=== PATIENT | female | born 1990 | race Caucasian/White ===

== ENCOUNTER 2023-05-15 10:32 | Outpatient (OUT) | payer OTHER, SELFPAY ==
--- NOTE | 2023-05-15 10:47 | US_ITS ---
[address] [address] Patient Name: CHASITY BAPTISTE MRN: [id number] date: 1990 Sex: F Assigned Patient Location: US Current Patient Location: US Accession/Order Number: [id number] Exam Date: 05/15/2023 10:46 Report Date: 05/15/2023 17:31 At the request of: KIRILL OATES Procedure: US OB transvaginal EXAM: US OB anatomy, US OB transvaginal HISTORY: ANATOMY COMPARISON: 02/21/2023. TECHNIQUE: Transabdominal and transvaginal FINDINGS: Dorsey intrauterine gestation presentation: Breech Amniotic fluid: Subjectively normal Placenta: Anterior fundal, grade 0. Cervix: 4.0 cm, closed Heart rate: 152 bpm Normal anatomy: Lateral ventricles, cerebellum, posterior fossa, nose/lips, orbits, four-chamber heart, diaphragm, stomach, kidneys, abdominal cord insertion, bladder, umbilical cord, three-vessel cord, spine, extremities Suboptimal visualization: RVOT, LVOT BIOMETRY: BPD: 4.4 cm , 19 weeks 2 days, 4% HC: 17.7 cm , 20 weeks 1 day, 15% AC: 15.6 cm , 20 weeks 5 days, 40% FL: 3.4 cm , 20 weeks 5 days, 35% EFW:365.9 grams ; 32%, 13 ounces FL/AC: 21.8 FL/BPD: 77.5 HC/AC: 1.1 GESTATIONAL AGE: Age by EDC: 20 weeks 6 days ALYSON by EDC: 09/26/2023 Age by current US: 20 weeks 4 days ALYSON by current US: 09/30/2023 IMPRESSION: Suboptimal visualization of the ventricular outflow tracts, otherwise normal anatomy scan Electronically authenticated by: CHARLES ZEPEDA Date: 05/15/2023 17:31
--- NOTE | 2023-05-15 10:47 | US_ITS ---
[address] [address] Patient Name: CHASITY BAPTISTE MRN: [id number] date: 1990 Sex: F Assigned Patient Location: US Current Patient Location: US Accession/Order Number: [id number] Exam Date: 05/15/2023 10:46 Report Date: 05/15/2023 17:31 At the request of: KIRILL OATES Procedure: US OB anatomy EXAM: US OB anatomy, US OB transvaginal HISTORY: ANATOMY COMPARISON: 02/21/2023. TECHNIQUE: Transabdominal and transvaginal FINDINGS: Dorsey intrauterine gestation presentation: Breech Amniotic fluid: Subjectively normal Placenta: Anterior fundal, grade 0. Cervix: 4.0 cm, closed Heart rate: 152 bpm Normal anatomy: Lateral ventricles, cerebellum, posterior fossa, nose/lips, orbits, four-chamber heart, diaphragm, stomach, kidneys, abdominal cord insertion, bladder, umbilical cord, three-vessel cord, spine, extremities Suboptimal visualization: RVOT, LVOT BIOMETRY: BPD: 4.4 cm , 19 weeks 2 days, 4% HC: 17.7 cm , 20 weeks 1 day, 15% AC: 15.6 cm , 20 weeks 5 days, 40% FL: 3.4 cm , 20 weeks 5 days, 35% EFW:365.9 grams ; 32%, 13 ounces FL/AC: 21.8 FL/BPD: 77.5 HC/AC: 1.1 GESTATIONAL AGE: Age by EDC: 20 weeks 6 days ALYSON by EDC: 09/26/2023 Age by current US: 20 weeks 4 days ALYSON by current US: 09/30/2023 IMPRESSION: Suboptimal visualization of the ventricular outflow tracts, otherwise normal anatomy scan Electronically authenticated by: CHARLES ZEPEDA Date: 05/15/2023 17:31
== END 2023-05-15 10:33 ==
PROVIDERS: Visit Provider Obstetrics & Gynecology
DX: Z34.92 Encounter for supervision of normal pregnancy, unspecified, second trimester (principal)
CPT/HCPCS: 76805; 76817

== ENCOUNTER 2023-06-17 10:05 | Outpatient (OUT) | payer OTHER, SELFPAY ==
--- NOTE | 2023-06-17 10:10 | US_ITS ---
[address] [address] Patient Name: CHASITY BAPTISTE MRN: [id number] date: 1990 Sex: F Assigned Patient Location: US Current Patient Location: Accession/Order Number: [id number] Exam Date: 06/17/2023 10:11 Report Date: 06/17/2023 18:24 At the request of: KIRILL OATES Procedure: US OB incomplete anatomy EXAM: US OB incomplete anatomy HISTORY: INCOMPLETE ANATOMY FOLLOW UP COMPARISON: None. TECHNIQUE: Transabdominal images FINDINGS: position: Breech presentation, longitudinal lie Heart rate: 150 bpm Normal observed anatomy: RVOT, LVOT US/US OB incomplete anatomy IMPRESSION: Normal ventricular outflow tracts Electronically authenticated by: CHARLES ZEPEDA Date: 06/17/2023 18:24
== END 2023-06-17 10:06 | disposition home or self-care (01) ==
LOC: US 10:05
PROVIDERS: Visit Provider Obstetrics & Gynecology
DX: Z36.2 Encounter for other antenatal screening follow-up (principal)
CPT/HCPCS: 76815

== ENCOUNTER 2023-07-23 11:33 | Outpatient (OUT) | payer OTHER, SELFPAY ==
[2023-07-23 12:09] LABS: Basophils Percent Auto 0.4 % (0.2-2.0); Eosinophils Absolute Auto 0.1 10^3/uL (0.0-0.7); Eosinophils Percent Auto 0.8 % (0.9-7.0); Hematocrit 31.3 % (36.0-48.0); Immature Granulocytes Abs Auto 0.05 10^3/uL (0.00-0.03); Immature Granulocytes Pct Auto 0.6 % (0.0-0.5); Lymphocytes Absolute Auto 1.7 10^3/uL (1.2-3.8); Lymphocytes Percent Auto 20.7 % (20.5-60.0); Mean Corpuscular HGB Conc 31.9 g/dL (29.9-35.2); Mean Corpuscular Volume 84.4 fL (81.0-99.0); Mean Platelet Volume 11.1 fL (9.5-13.5); Monocytes Absolute Auto 0.7 10^3/uL (0.3-0.8); Monocytes Percent Auto 8.8 % (1.7-12.0); Neutrophils Absolute Auto 5.7 10^3/uL (1.4-6.5); Neutrophils Percent Auto 68.7 % (43.0-75.0); Platelet Count 284 10^3/uL (150-450); Red Blood Count 3.71 10^6/uL (4.20-5.40); Red Cell Distribution Width 13.8 % (11.0-15.0); White Blood Count 8.3 10^3/uL (4.0-11.0)
[2023-07-23 12:52] LABS: Estimated Average Glucose 114 mg/dL; Glycohemoglobin A1C 5.6 % (4.5-6.2)
== END 2023-07-23 11:34 | disposition home or self-care (01) ==
LOC: LAB 11:34
PROVIDERS: Visit Provider Obstetrics & Gynecology
DX: Z34.93 Encounter for supervision of normal pregnancy, unspecified, third trimester (principal)
CPT/HCPCS: 36415; 83036; 85025

== ENCOUNTER 2023-09-04 18:58 | Outpatient (REF) | payer OTHER, SELFPAY | END 2023-09-04 18:59 | disposition home or self-care (01) | LOC: LAB 18:58 | PROVIDERS: Visit Provider Physician Assistant | DX: Z34.93 Encounter for supervision of normal pregnancy, unspecified, third trimester (principal) | CPT/HCPCS: 87081 ==

== ENCOUNTER 2023-09-26 05:22 | Inpatient (IN) | payer OTHER, SELFPAY ==
[2023-09-26] VITALS (36 sets, daily range): BP systolic 62–123; BP diastolic 46–88; PULSE 71–97; RESP 13–28; TEMP 36.1–36.9; O2SAT 96–99
[2023-09-26] MEDS: CEFAZOLIN SODIUM/DEXTROSE,ISO 2 GM/50 ML PIGGYBACK IV ×2 (06:30→13:56)
[2023-09-26] MEDS: 0.9 % SODIUM CHLORIDE 1,000 ML 1000 ML IV ×2 (06:31→07:11)
[2023-09-26 06:33] LABS: Hemoglobin 10.5 g/dL (12.0-16.0); Mean Corpuscular HGB Conc 30.9 g/dL (29.9-35.2); Mean Corpuscular Hemoglobin 25.7 pg (26.7-34.0); Mean Corpuscular Volume 83.3 fL (81.0-99.0); Mean Platelet Volume 12.5 fL (9.5-13.5); Platelet Count 211 10^3/uL (150-450); Red Blood Count 4.08 10^6/uL (4.20-5.40); White Blood Count 6.2 10^3/uL (4.0-11.0)
[2023-09-26 06:36] LABS: Bilirubin Urine NEGATIVE (NEGATIVE); Blood Urine NEGATIVE (NEGATIVE); Clarity Urine CLEAR (CLEAR); Color Urine LT. YELLOW (YELLOW); Glucose Urine UA NEGATIVE (NEGATIVE); Ketones Urine NEGATIVE (NEGATIVE); Leukocyte Esterase Urine TRACE (NEGATIVE); Nitrite Urine NEGATIVE (NEGATIVE); Protein Urine NEGATIVE (NEG/TRACE); Specific Gravity Urine 1.015 (1.005-1.025); Urobilinogen Urine 0.2 EU/dL (0.2-1.0)
[2023-09-26 06:59] LABS: Amphetamine Screen Urine NEGATIVE (NEGATIVE); Barbiturates Screen Urine NEGATIVE (NEGATIVE); Benzodiazepines Screen Urine NEGATIVE (NEGATIVE); Buprenorphine Screen Urine NEGATIVE (NEGATIVE); Cannabinoid Screen Urine NEGATIVE (NEGATIVE); Cocaine Screen Urine NEGATIVE (NEGATIVE); Methadone Screen Urine NEGATIVE (NEGATIVE); Methamphetamines Screen Urine NEGATIVE (NEGATIVE); Opiate Screen Urine NEGATIVE (NEGATIVE); Oxycodone Screen Urine NEGATIVE (NEGATIVE); Phencyclidine Screen Urine NEGATIVE (NEGATIVE); Tricyclic Antidepressant Urine NEGATIVE (NEGATIVE)
[2023-09-26] MEDS: CITRIC ACID/SODIUM CITRATE 30 ML SOLUTION ORACIT SHOHL'S SOLN PO (07:15)
[2023-09-26] MEDS: FAMOTIDINE/PF 20 MG/2 ML VIAL IV (07:15)
[2023-09-26 07:21] LABS: Bacteria Urine MODERATE #/HPF (NONE SEEN); Cast Seen? NONE SEEN #/LPF (NONE SEEN); Crystals Seen? None Seen #/HPF (None Seen); Mucus Urine NONE SEEN (NONE SEEN); Squamous Epithelial Cell Urine FEW #/LPF (NONE/RARE); Urine Culture Indicated YES
--- NOTE | 2023-09-26 07:27 | W.PC.ACHO ---
Registration Status: ADM IN Primary Language: Latvian Preferred Language: Latvian Active Medications Generic Name Dose Route Start Last Admin Trade Name Freq PRN Reason Stop Dose Admin Sodium Chloride 1,000 mls @ 1,000 mls/hr 09/26/23 05:30 09/26/23 07:11 Sodium Chloride 0.9% 1,000 Ml IV 09/26/23 07:29 1,000 mls/hr .Q1H DEBORAH Administration Sodium Chloride 1,000 mls @ 125 mls/hr 09/26/23 05:30 Sodium Chloride 0.9% 1,000 Ml IV .Q8H DEBORAH Diet Category Date Time Status NPO Diet Diet 09/26/23 05:27 Active Consults Category Date Time Status Consult to Anesthesiology Routine Cons 09/26/23 Ordered IV Insertion/Site Date of IV Line Insertion [ 09/26/23 Short PIV (<1.75 in) 20g left Forearm] IV Insertion Time [Short PIV ( 06:03 <1.75 in) 20g left Forearm] Neurology Patient orientation (short person,place,time,situation list) Respiratory Oxygen Delivery Method Room Air
[2023-09-26 07:37] LABS: Anisocytosis 1+; Lymphocytes Absolute Manual 1.17 10^3/uL (1.20-3.80); Monocytes Absolute Manual 0.43 10^3/uL (0.30-0.80); Segmented Neut Absolute Manual 4.58 10^3/uL (1.4-6.5)
[2023-09-26] MEDS: LACTATED RINGER'S SOLUTION 1,000 ML 50 ML IV (08:02)
--- NOTE | 2023-09-26 08:28 | P.ON_ITS ---
Brief Operative Note Date of procedure: 09/26/23 Pre-op diagnosis: iup at 39 2/7wks, previous c/s Post-op diagnosis: same as pre-op Procedure: NAME OF PROCEDURE: [ section ] PROCEDURE: Patient was taken back to the Operating Room where she was given a spinal anesthesia with Duramorph without difficulty. She was prepped and draped in the normal sterile fashion. A Pfannenstiel skin incision was then made 2 cm above the symphysis pubis and carried down to underlying rectus fascia using a Bovie. The fascia was incised in the midline and extended laterally using Ma scissors. Two Krunal clamps were placed on the superior aspect of the fascia and dissected off the underlying rectus muscles. The same was performed on the inferior aspect as well. The muscles were then in the midline. Peritoneum was identified and entered bluntly. The peritoneum was then extended superiorly and inferiorly with good visualization of the bladder. The bladder blade was inserted. A low transverse incision was made on the patient's uterus and extended laterally digitally. The was then delivered atraumatically after the bladder blade was removed in the cephalic position. The cord was clamped and cut. Cord blood was obtained. The infant was handed off to awaiting team. The patient's placenta was spontaneously delivered. The uterus was then exteriorized. The uterus was cleared of all clots and debris. The blad jose blade was reinserted. The patient's uterine incision was closed using #0 Vicryl in a running lock fashion. Excellent hemostasis was assured. The uterus was then returned to the patient's abdomen. The patient's abdomen was copiously irrigated using warm saline. Peritoneal gutters were cleared of all clots and debris. Again excellent hemostasis was assured. The patient's peritoneum was closed using 3-0 Vicryl in a running fashion. The patient's fascia was closed using #0 Vicryl in a running fashion. The patient's skin was closed using 4-0 Vicryl subcuticularly. The patient tolerated the procedure well. Sponge, lap, and needle counts were correct x2. The patient was taken to the Recovery Room in stable condition. Anesthesia: spinal Surgeon: Philip Jain Furnace Utility Operator: Isi Lauren Estimated blood loss (mL): 575 Pathology: none sent Condition: stable Disposition: floor
--- NOTE | 2023-09-26 08:29 | P.OBPRC_ITS ---
Procedure Pre-op/Post-op diagnoses: Pre-Op/Post-Op Diagnoses Operation Date: 09/26/23 07:45 <No data on this case meets the specified criteria> Procedure: Procedures Operation Date: 09/26/23 07:45 Actual Procedure Side Surgeon p Repeat Not Applicable Philip Jain DO Photographer Apprentice: Isi Lauren Estimated blood loss (mL): 575 Disposition: PACU Anesthesia type: Spinal
[2023-09-26] MEDS: OXYTOCIN/0.9 % SODIUM CHLORIDE 20 UNITS/1,000 ML PLAST..BAG 200 UNIT IV (09:37)
[2023-09-26] MEDS: ONDANSETRON PF 4 MG/2 ML VIAL IV (11:53)
[2023-09-26] MEDS: KETOROLAC TROMETHAMINE 30 MG/ML VIAL IVP ×2 (15:01→21:55)
--- NOTE | 2023-09-26 19:22 | W.PC.ACHO ---
Registration Status: ADM IN Primary Language: Cook Islander Preferred Language: [place] Islander Active Medications Generic Name Dose Route Start Last Admin Trade Name Freq PRN Reason Stop Dose Admin Al Hydroxide/Mg Hydroxide 2,400 mg 09/26/23 08:29 Magnesium Hydroxide 2,400 Mg/10 Ml Oral.Susp PO Q6H PRN Dyspepsia Diphenhydramine HCl 25 mg 09/26/23 08:29 Diphenhydramine Hcl 50 Mg/Ml (1ml) Vial IV 09/27/23 08:30 Q6H PRN Itching Diphtheria/Pertussis/Tetanus Vacc 0.5 ml 09/28/23 09:00 Adacel Diph,Pertuss(Acell),Tet Vac/Pf 0.5 Ml Adult Syringe IM 09/28/23 09:01 .ONCE ONE Docusate Sodium 100 mg 09/27/23 09:00 Docusate Sodium 100 Mg Capsule PO BID DEBROAH Enoxaparin Sodium 40 mg 09/26/23 22:00 Enoxaparin Sodium 40 Mg/0.4 Ml Syringe SUBQ Q24H DEBORAH Sodium Chloride 1,000 mls @ 125 mls/hr 09/26/23 08:30 Sodium Chloride 0.9% 1,000 Ml IV .Q8H DEBORAH Ibuprofen 800 mg 09/26/23 08:29 Ibuprofen 400 Mg Tablet PO Q8H PRN Pain Ketorolac Tromethamine 30 mg 09/26/23 08:29 09/26/23 15:01 Ketorolac Tromethamine 30 Mg/Ml Vial IVP 09/28/23 08:30 30 mg Q6H PRN Administration Pain Measles/Mumps/Rubella Vaccine Live 0.5 ml 09/28/23 09:00 Measles,Mumps,Rubella Vacc/Pf 0.5 Ml Vial SQ 09/28/23 09:01 .ONCE ONE Ondansetron HCl 4 mg 09/26/23 08:29 09/26/23 11:53 Ondansetron Pf 4 Mg/2 Ml Vial IV 4 mg Q6H PRN Administration Nausea And Vomiting Ondansetron HCl 4 mg 09/26/23 08:29 Ondansetron 4 Mg Rapdis Tablet PO Q6H PRN Nausea And Vomiting Oxycodone/Acetaminophen 1 tab 09/26/23 08:29 Oxycodone Hcl/Acetaminophen 5mg/325mg PO Q4H PRN Pain Scale 4-6 Oxycodone/Acetaminophen 2 tab 09/26/23 08:29 Oxycodone Hcl/Acetaminophen 5mg/325mg PO Q4H PRN Pain Scale 7-10 Senna 17.2 mg 09/26/23 20:00 Sennosides 8.6 Mg Tablet PO QHS PRN Constipation Simethicone 80 mg 09/26/23 08:29 Simethicone 80 Mg Tab.Chew PO QID PRN Abdominal Distention Diet Category Date Time Status Regular Consistency Diet Diet 09/26/23 08:29 Active Consults Category Date Time Status Consult to Anesthesiology Routine Cons 09/26/23 Ordered IV Insertion/Site Date of IV Line Insertion [ 09/26/23 Short PIV (<1.75 in) 20g left Forearm] IV Insertion Time [Short PIV ( 06:03 <1.75 in) 20g left Forearm] Neurology Patient orientation (short person,place,time,situation list) Respiratory Pulse Oximetry 97 Pulse Oximetry 99 Pulse Oximetry 97 Pulse Oximetry 98 Pulse Oximetry 97 Pulse Oximetry 97 Pulse Oximetry 97 Pulse Oximetry 96 Pulse Oximetry 98 Pulse Oximetry 98 Pulse Oximetry 98 Pulse Oximetry 99 Pulse Oximetry 99 Pulse Oximetry 97 Pulse Oximetry 98 Pulse Oximetry 99 Oxygen Delivery Method Room Air Oxygen Delivery Method Room Air Oxygen Delivery Method Room Air Oxygen Delivery Method Room Air Oxygen Delivery Method Room Air Oxygen Delivery Method Room Air Oxygen Delivery Method Room Air Oxygen Delivery Method Room Air Catheter Urinary Catheter Date of 09/26/23 Insertion [Urethral] Urinary Catheter Time of 07:40 Insertion [Urethral]
[2023-09-26] MEDS: ENOXAPARIN SODIUM 40 MG/0.4 ML SYRINGE SUBQ (21:56)
[2023-09-27] VITALS (10 sets, daily range): BP systolic 100–110; BP diastolic 60–74; PULSE 74–89; RESP 16; TEMP 36.6–37.1; O2SAT 97–98
[2023-09-27] MEDS: KETOROLAC TROMETHAMINE 30 MG/ML VIAL IVP ×3 (06:02→21:38)
[2023-09-27 06:35] LABS: Basophils Absolute Auto 0.1 10^3/uL (0.0-0.1); Basophils Percent Auto 0.6 % (0.2-2.0); Eosinophils Absolute Auto 0.1 10^3/uL (0.0-0.7); Eosinophils Percent Auto 0.9 % (0.9-7.0); Hematocrit 28.9 % (36.0-48.0); Immature Granulocytes Abs Auto 0.01 10^3/uL (0.00-0.03); Immature Granulocytes Pct Auto 0.1 % (0.0-0.5); Lymphocytes Absolute Auto 1.8 10^3/uL (1.2-3.8); Lymphocytes Percent Auto 22.4 % (20.5-60.0); Mean Corpuscular HGB Conc 31.1 g/dL (29.9-35.2); Mean Corpuscular Hemoglobin 26.5 pg (26.7-34.0); Mean Platelet Volume 11.7 fL (9.5-13.5); Monocytes Absolute Auto 0.7 10^3/uL (0.3-0.8); Neutrophils Absolute Auto 5.5 10^3/uL (1.4-6.5); Platelet Count 191 10^3/uL (150-450); Red Cell Distribution Width 16.8 % (11.0-15.0); White Blood Count 8.1 10^3/uL (4.0-11.0)
--- NOTE | 2023-09-27 10:10 | P.OBPN_ITS ---
OB - PN: Subj Subjective Patient comments: no complaints and pain well controlled [place] status: doing well Exam Constitutional Vital Signs, click to edit/add: Last Vital Signs Temp 98.0 F 09/27/23 06:00 Pulse 74 09/27/23 06:00 Resp 16 09/27/23 06:32 BP 100/62 09/27/23 06:00 Pulse Ox 98 09/27/23 06:32 O2 Del Method Room Air 09/27/23 06:32 Documenting provider has reviewed patient's vital signs: yes Common normals: no apparent distress Respiratory Common normals: normal respiratory effort and clear to auscultation bilaterally Cardio Common normals: regular rate and regular rhythm GI Common normals: Normal to inspection, nondistended, normoactive bowel sounds present Extremity Common normals: no clubbing, cyanosis or edema and no calf tenderness Results Labs Labs: Short CBC 09/27/23 Range/Units 06:27 WBC 8.1 (4.0-11.0) 10^3/uL Hgb 9.0 L (12.0-16.0) g/dL Hct 28.9 L (36.0-48.0) % Plt Count 191 (150-450) 10^3/uL OB - PN: A/P Plan - day: 1 Plan: routine postop care Time Spent with Patient Time: Total time spent is greater than 50% in coordination of care (as documented) at patient's floor/unit and/or counseling patient: Total time spent with greater than 50% in coordination of care (as documented) at patient's floor/unit and/or counseling patient: less than 15 minutes
[2023-09-27] MEDS: ENOXAPARIN SODIUM 40 MG/0.4 ML SYRINGE SUBQ (21:38)
[2023-09-28] MEDS: KETOROLAC TROMETHAMINE 30 MG/ML VIAL IVP ×2 (03:27→09:21)
[2023-09-28 08:07] VITALS: BP 120/70; PULSE 98
[2023-09-28 08:32] VITALS: RESP 18; TEMP 36.7
[2023-09-28] MEDS: ADACEL DIPH,PERTUSS(ACELL),TET VAC/PF 0.5 ML ADULT SYRINGE IM (09:01)
--- NOTE | 2023-09-28 09:28 | PM.OBPN ---
OB - PN: Subj Subjective Patient comments: no complaints and pain well controlled [place] status: doing well and well Exam Constitutional Vital Signs, click to edit/add: Last Vital Signs Temp 98.1 F 09/28/23 08:32 Pulse 98 H 09/28/23 08:07 Resp 18 09/28/23 08:32 BP 120/70 09/28/23 08:07 Pulse Ox 98 09/27/23 22:28 O2 Del Method Room Air 09/27/23 22:28 Documenting provider has reviewed patient's vital signs: yes Common normals: no apparent distress Respiratory Common normals: normal respiratory effort and clear to auscultation bilaterally Cardio Common normals: regular rate and regular rhythm GI Common normals: Normal to inspection, nondistended, normoactive bowel sounds present Extremity Common normals: no clubbing, cyanosis or edema and no calf tenderness OB - PN: A/P Plan - day: 2 Plan: routine postop care, discharge home and follow up 6 weeks Time Spent with Patient Time: Total time spent is greater than 50% in coordination of care (as documented) at patient's floor/unit and/or counseling patient: Total time spent with greater than 50% in coordination of care (as documented) at patient's floor/unit and/or counseling patient: less than 15 minutes
--- NOTE | 2023-10-19 | DS_ITS ---
DISCHARGE DATE: ??10/19/2023 PRIMARY DIAGNOSES: 1.? Intrauterine at 39 2/7 weeks. 2.? Previous . PROCEDURE:? section. HOSPITAL COURSE:? As expected.? Please see chart for full details.? LABORATORY DATA:? Please see chart. COMPLICATIONS:? None. DISCHARGE CONDITION:? Stable. CONSULTATION:? Anesthesia. DISCHARGE INSTRUCTIONS: 1.? Diet:? Regular. 2.? Medications: a.? Percocet 5/325 one to two p.o. every 4-6 hours p.r.n. pain. b.? Motrin 800 one p.o. every 8 hours p.r.n. pain. 3.? Followup in one week. Restrictions:? Pelvic rest for 6 weeks.? No heavy lifting.? May drive when pain free and no longer on narcotics. MARGARETD
== END 2023-09-28 10:30 | disposition home or self-care (01) | DRG 540 ==
PROVIDERS: Admitting Provider Obstetrics & Gynecology; Visit Provider Obstetrics & Gynecology
PROC: 10D00Z1 Extraction of Products of Conception, Low, Open Approach (ICD-10-PCS; CPT 59514; principal; 2023-09-26 07:45)
DX: O34.211 Maternal care for low transverse scar from previous cesarean delivery (principal); O99.52 Diseases of the respiratory system complicating childbirth; J45.909 Unspecified asthma, uncomplicated; O99.344 Other mental disorders complicating childbirth; F41.1 Generalized anxiety disorder; Z3A.39 39 weeks gestation of pregnancy; Z37.0 Single live birth; Z88.0 Allergy status to penicillin; Z88.2 Allergy status to sulfonamides; Z82.49 Family history of ischemic heart disease and other diseases of the circulatory system; Z80.9 Family history of malignant neoplasm, unspecified
CPT/HCPCS: 36415; 59050; 80307; 81001; 85025; 85027; 86850; 86900; 86901; 87086; 90471; 90715; 94667; 94668; 96372; 96374; 96375; 96376

== ENCOUNTER 2025-04-23 14:24 | Emergency (ER) | payer BC, SELFPAY ==
--- OUTSIDE RECORDS SUMMARY | 2025-04-22 14:46 | XMS_ITS ---
Author Name Auto Generated Organization [facility] Care Team Providers Care Lunch Truck Operator Name Role Phone SHANNON SCHROEDER Attending Unavailable AKHIL, ELIUD Forrester Attending Unavailable ELDA, SHANNON Attending Unavailable ELDASHANNON Attending Unavailable StanfordPino Attending Unavailable Betty Hopper Attending Unavailable OrJodi garcia Attending Unavailable Galilea Nagel Attending Unavailable Pancho Caraballo Attending Unavailable Stanford, John Attending Unavailable Pancho Caraballo Attending Unavailable CRISTHIAN JAMISON Attending Unav ailable CRISTHIAN JAMISON Referring Unav ailable CRISTHIAN JAMISON Primary Care Unav ailable SANTA SANCHEZ Attending Unavailable SANTA SANCHEZ Primary Care Unavailable PROBLEMS DATE TYPE CONDITION / CODE ATTENDING STATUS [facility] 04/22/2025 Active Throat irritatio n / J39.2(ICD-10) SANTA SANCHEZ [facility] 01/11/2025 Active Chronic tension- type headache, not intractable / G44.229(ICD-10) NA [facility] PROCEDURES No Procedure Records Found RESULTS PROGRESS Observed: 04/22/2025 3:18 PM Status: COMPLETED Source: [facility] HNO ID: [id number] Author: SANTA SANCHEZ APRN.BAKER TEST Service: ? Author Type: Nurse Practitioner Type: Progress Notes Filed: 04/22/2025 15:21 Note Text: David Calero is a 35-year-old female with a history of GERD and allergies, presenting for evaluation of a burning sensation in the throat. Throat Burning: - Burning sensation in the throat x2 months. - Intermittent, with some days worse than others - Occasionally relieved by belching. - No dysphagia or sensation of food getting stuck. - Denies hematochezia or melena. - History of similar sensations described as sharp. GERD: - Diagnosed 15 years ago. - Prescribed omeprazole in January by Dr. Mills; has not been taking it regularly. - Using Tums PRN with some relief. - Previous endoscopy showed irritation of the stomach lining 15 years ago Allergies: - Prescribed Flonase and Claritin by Dr. Mills; not using regularly. - Denies recent rhinorrhea, post-nasal drip, or congestion. Constitutional: on a diet with portion control and has lost 7# Ears/Nose/Mouth/Throat: (+) burning throat, (-) runny nose, (-) post nasal drip, (-) congestion, (-) difficulty swallowing Gastrointestinal: (+) heartburn, (+) belching, (-) blood in stool, (-) black tarry stool Objective Last menstrual period 11/12/2024. GENERAL: NAD, alert and oriented Neck:no swelling Labs: Tests: - Endoscopy: Irritation of the stomach lining Imaging: Assessment AND Plan 1. Throat irritation (J39.2) 2. Gastro-esophageal reflux disease without esophagitis (K21.9) - Throat irritation with burning sensation present for approximately two months, intermittent in nature. - History of GERD for 15 years; previously prescribed omeprazole by Dr. Mills, but non-compliant with medication regimen. - Advised to take omeprazole daily for at least two weeks to assess for improvement in symptoms. - Reordered omeprazole prescription. - Discussed potential dietary triggers; provided a list of common irritants and instructed patient to identify and avoid known triggers. - If symptoms persist after maximizing GERD treatment, discussed the possibility of a repeat endoscopy. 3. Chronic allergic rhinitis (J30.9) - Previously prescribed Flonase and Claritin; currently using wciw-esg-igtzogu loratadine sporadically. - No recent increase in allergy symptoms such as rhinorrhea, post-nasal drip, or congestion. - Advised to take loratadine daily until next follow-up. Recording using [employer] software for draft documentation of the visit was discussed with the patient/authorized exhibit display representative; all questions welcomed and answered. Patient/authorized exhibit display representative agreed to proceed Santa Sanchez APRN.[facility] OFFICE/CLINI C NOTE Observed: 02/03/2025 10:49 AM Status: F Source: [facility] Medicine Office/Clini c Note Chief Complaint Dizziness HPI Staff 34 year old female complaints of dizziness and nausea yesterday, also clogged ears, slight sore throat and sinus pressure. Pt states she drank water and took zofran and that seemed to help, however she is still feeling dizzy. Pt reports being sick with cold like symptoms. History of Present Illness Patient is a 34-year-old female denies past medical history is here with her child complaining of ear pain. Today the patient is complaining of mild ear pressure and some slight dizziness with turning her head to the left and right. When she was laying in bed she noticed room type spinning. No syncope reported no chest pain or shortness of breath no fevers or chills. She does report some mild sinus pressure. Physical Exam Vitals & Measurements T: 36.5 ???C(Oral) HR: 73(Peripheral) RR: 18 BP: 108/66 SpO2: 98% HT: 64 in HT: 162 cm WT: 80.8 kg WT: 178.133 lb BMI: 30.79 General: alert, no acute distress, well appearing, _pleasant Skin: warm, dry, intact Head: no trauma, normocephalic Neck: Trachea midline, no adenopathy, no tenderness Eye: normal conjunctiva, sclera clear, _PERRLA ENMT: TM's clear mild bulging clear fluid, no injection or opacity, oral mucosa moist, no pharyngeal erythema or exudate, normal dentition, mild maxilla sinus tenderness to palpation Cardiovascular: regular rate and rhythm, normal peripheral perfusion, no edema Respiratory: Lungs CTA, respirations non labored Chest wall: no deformity, non tender Extremities: no deformity, no trauma Neurological: oriented x 4, LOC appropriate for age, CN II-XII intact, motor strength equal & normal bilaterally, sensation equal & normal bilaterally, speech normal Psychiatric: cooperative? , affect appropriate for age? , normal? judgement, normal? psychiatric thoughts. Assessment/Plan COVID AND INFLUENZA NEGATIVE Reviewed with patient that physical exam and symptoms are consistent with a viral infection. Discussed antibiotics unfortunately do not treat viral illnesses, it will take time to run its course. The first 3-5 days of symptoms are typically the worst (fever, body aches, etc), with cold symptoms lasting 7-14 days. Encouraged fluids to keep secretions thin. Rest. Take Tylenol/Ibuprofen for pain/fevers as needed, may need to alternate. May use Dayquil or similar for symptoms. Recommended using cool-mist humidifier in room, nettipot, coughing/sneezing into elbow, frequent and thorough hand hygiene. Encouraged to seek re-evaluation with PCP if symptoms persist beyond 14 days without any improvement, and if any fevers above 101 develop, as could have a secondary bacterial infection requiring antibiotics. Patient and/or parent verbalized understanding of treatment plan. Work/school note provided. ??? Congestion: o mucinex D (pseudoephedrine and guaifenesin) o mucinex (guaifenesin only to clear mucus) o Sudafed (pseudoephedrine) ??? antitussives otessalon perles (Benzonatate) 100mg TID x 10day orobitussin (Dextromethorphan) (Rx Bromfed cesar 2mg/10mg/30mg per 5 mL (10ml PO q6h PRN) Max: 40 mL/day; Info: do not exceed 24 mg/day brompheniramine, 120 mg/day dextromethorphan, 240 mg/day pseudoephedrine from all sources oMucinex DM (DM-guaifenesin) ER 60-1200mg (contains guaifenesin and dextromethophan) 1. Ear ache (H92.09: Otalgia, unspecified ear) Ordered: Influenza Type A&B POC 62491 Rapid COVID POC 11737 2. Vertigo (R42: Dizziness and giddiness) Ordered: meclizine, 25 mg = 1 tab(s), Oral, TID, PRN for dizziness, # 30 tab(s), Refills(s) 0, Pharmacy: [facility], 162, cm, 02/02/25 17:31:00 EST, Height/Length Dosing, 80.8, kg, 02/02/25 17:31:00 EST, Weight Dosing ondansetron, 4 mg = 1 tab(s), Oral, q6hr, PRN Nausea, # 20 tab(s), Refills(s) 0, Pharmacy: [facility], 162, cm, 02/02/25 17:31:00 EST, Height/Length Dosing, 80.8, kg, 02/02/25 17:31:00 EST, Weight Dosing Total time spent preparing the chart, conducting of the encounter with the patient and family and time spent documenting, reviewing, and ordering tests was 25 minutes. Portions of this record may have been created with voice recognition artificial intelligence software, specifically [employer], [employer] and or [facility]. Substitutions may have occurred due to the inherent limitations of voice recognition and artificial intelligence software. Follow-up With When Contact Information YOUR PCP Additional Instructions: Patient Education Earache, Adult How to Perform the Ml Maneuver Vertigo Problem List/Past Medical History Ongoing Generalized anxiety disorder with panic attacks Vertigo Historical No qualifying data Medications Albuterol (Eqv-Proventil HFA) 90 mcg/inh inhalation aerosol, 2 inh, Inhalation, q6hr, PRN Antivert 25 mg Tab, 25 mg= 1 tab(s), Oral, TID, PRN fluticasone Nasal 0.05 mg/inh Perdido, 1 spray(s), Nasal, Daily, PRN Zofran 4 mg Tab, 4 mg= 1 tab(s), Oral, q6hr, PRN Allergies Bactrim DS (Hives) penicillin (Anaphylactic reaction) Social History Alcohol - Denies Alcohol Use, 12/29/2019 Current, 12/25/2019 Substance Abuse - Denies Substance Abuse, 12/29/2019 Current, 12/25/2019 Tobacco - Denies Tobacco Use, 12/29/2019 Never (less than 100 in lifetime) Tobacco Use:., 02/02/2025 Never (less than 100 in lifetime) Tobacco Use:. Never Smokeless Tobacco Use:., 04/11/2024 Immunizations Vaccine Date Status Comments SARS-CoV-2 mRNA (toyaoheron 5y-11y) vac - Not Given Postpone due to refusal influenza virus vaccine, inactivated 02/19/2021 Recorded tetanus-diphtheria toxoids 03/29/2019 Recorded Td(adult) unspecified formulation 12/12/2003 Recorded hepatitis B pediatric vaccine 01/18/1997 Recorded haemophilus b conj (PRP-OMP) vaccine 01/18/1997 Recorded hepatitis B pediatric vaccine 06/23/1996 Recorded haemophilus b conj (PRP-OMP) vaccine 06/23/1996 Recorded hepatitis B pediatric vaccine 05/26/1996 Recorded haemophilus b conj (PRP-OMP) vaccine 05/26/1996 Recorded DTaP, unspecified formulation 05/26/1996 Recorded hepatitis B pediatric vaccine 1991 Recorded Hib, unspecified formulation 1991 Recorded poliovirus vaccine, inactivated 1991 Recorded hepatitis B pediatric vaccine 1991 Recorded Hib, unspecified formulation 1991 Recorded poliovirus vaccine, inactivated 1991 Recorded hepatitis B pediatric vaccine 1991 Recorded Hib, unspecified formulation 1991 Recorded Lab Results Ambulatory Point of Care Results Influenza A POC: Negative (02/02/25 17:53:00) Influenza B POC: Negative (02/02/25 17:53:00) Rapid Covid POC: Negative (02/02/25 17:57:00) Result Comment: Electronical ly Signed By: Galilea Mcclellan\.br\Date and Time Signed: 02/03/25 10:49 EST AMBULATORY VISIT SUMMARY Observed: 02/02 5:58 PM Status: F Source: [facility] Ambulatory Visit Summary GALILEA BAPTISTE :1990 Visit Date:02/02/2025 Ambulatory Visit Instructions Your Diagnosis Ear ache Vertigo Your Care Team Attending Physician - Galilea Mcclellan Primary Care Physician - ROLY AVILA CNP This Is Your Medications List albuterol (Albuterol (Eqv-Proventil HFA) 90 mcg/inh inhalation aerosol) fluticasone nasal (fluticasone Nasal 0.05 mg/inh Perdido) meclizine (Antivert 25 mg Tab) ondansetron (Zofran 4 mg Tab) Discharge Vitals Temperature (Oral) 36.5 ???C Heart Rate (Peripheral) 73 Respiratory Rate 18 Blood Pressure 108/66 Height 162 cm Height 64 in Weight 80.8 kg Weight 178.133 lb BMI 30.79 What to do next You Need to Schedule the Following Appointments Follow Up with YOUR PCP When: Where: Medications What How Much When Why Instructions New meclizine (Antivert 25 mg Tab) 1 Tablets By Mouth 3 times a day as needed for for dizziness Vertigo Pickup at [facility] New ondansetron (Zofran 4 mg Tab) 1 Tablets By Mouth Every 6 hours as needed for Nausea Vertigo Pickup at [facility] Unchanged albuterol (Albuterol (Eqv-Proventil HFA) 90 mcg/ inh inhalation aerosol) 2 Inhalation Inhalation Every 6 hours as needed for Shortness of breath or wheezing Unchanged fluticasone nasal (fluticasone Nasal 0.05 mg/ inh Perdido) 1 Sprays Nasal Inhalation Every day as needed for Allergy symptoms Pharmacy Information [facility]: [address], [place] [id number] [phone] Allergies Bactrim DS (Hives) penicillin (Anaphylactic reaction) Problems Ongoing - Any problem that you are currently receiving treatment for. Generalized anxiety disorder with panic attacks Vertigo Patient Survey You may receive a survey via text or e-mail asking about your office visit. Please share your experience with us by completing your survey. We appreciate your feedback and thank you for choosing us for your care. Education Materials Earache, Adult An earache, or ear pain, can be caused by many things, including: ??? An infection. ??? Ear wax buildup. ??? Ear pressure. ??? Something in the ear that should not be there (foreign body). ??? A sore throat. ??? Tooth problems. ??? Jaw problems. Treatment of the earache will depend on the cause. If the cause is not clear or cannot be known, you may need to watch your symptoms until your earache goes away or until a cause is found. Follow these instructions at home: Medicines ??? Take or apply iozh-bwa-wxvyaog and prescription medicines only as told by your health care provider. ??? If you were prescribed antibiotics, use them as told by your health care provider. Do not stop using the antibiotic even if you start to feel better. ??? Do not put anything in your ear other than medicine that is prescribed by your health care provider. Managing pain If directed, apply heat to the affected area as often as told by your health care provider. Use the heat source that your health care provider recommends, such as a moist heat pack or a heating pad. ??? Place a towel between your skin and the heat source. ??? Leave the heat on for 20???30 minutes. ??? If your skin turns bright red, remove the heat right away to prevent barr. The risk of barr is higher if you cannot feel pain, heat, or cold. If directed, put ice on the affected area. To do this: ??? Put ice in a plastic bag. ??? Place a towel between your skin and the bag. ??? Leave the ice on for 20 minutes, 2???3 times a day. ??? If your skin turns bright red, remove the ice right away to prevent skin damage. The risk of skin damage is higher if you cannot feel pain, heat, or cold. General instructions ??? Pay attention to any changes in your symptoms. ??? Try resting in an upright position instead of lying down. This may help to reduce pressure in your ear and relieve pain. ??? Chew gum if it helps to relieve your ear pain. ??? Treat any allergies as told by your health care provider. ??? Drink enough fluid to keep your urine pale yellow. ??? It is up to you to get the results of any tests that were done. Ask your health care provider, or the department that is doing the tests, when your results will be ready. Contact a health care provider if: ??? Your pain does not improve within 2 days. ??? Your earache gets worse. ??? You have new symptoms. ??? You have a fever. Get help right away if: ??? You have a severe headache. ??? You have a stiff neck. ??? You have trouble swallowing. ??? You have redness or swelling behind your ear. ??? You have fluid or blood coming from your ear. ??? You have hearing loss. ??? You feel dizzy. This information is not intended to replace advice given to you by your health care provider. Make sure you discuss any questions you have with your health care provider. Document Revised: 03/31/2023 Document Reviewed: 03/31/2023 [employer] Patient Education ??? 2023 [facility] [employer] How to Perform the Ml Maneuver The Ml maneuver is an exercise that relieves symptoms of vertigo. Vertigo is the feeling that you or your surroundings are moving when they are not. When you feel vertigo, you may feel like the room is spinning and may have trouble walking. The Ml maneuver is used for a type of vertigo caused by a calcium deposit in a part of the inner ear. The maneuver involves changing head positions to help the deposit move out of the area. You can do this maneuver at home whenever you have symptoms of vertigo. You can repeat it in 24 hours if your vertigo has not gone away. Even though the Ml maneuver may relieve your vertigo for a few weeks, it is possible that your symptoms will return. This maneuver relieves vertigo, but it does not relieve dizziness. What are the risks? If it is done correctly, the Ml maneuver is considered safe. Sometimes it can lead to dizziness or nausea that goes away after a short time. If you develop other symptoms???such as changes in vision, weakness, or numbness???stop doing the maneuver and call your health care provider. Supplies needed: ??? A bed or table. ??? A pillow. How to do the Ml maneuver 1. Sit on the edge of a bed or table with your back straight and your legs extended or hanging over the edge of the bed or table. 2. Turn your head custodial toward the affected ear or side as told by your health care provider. 3. Lie backward quickly with your head turned until you are lying flat on your back. Your head should dangle (head-hanging position). You may want to position a pillow under your shoulders. 4. Hold this position for at least 30 seconds. If you feel dizzy or have symptoms of vertigo, continue to hold the position until the symptoms stop. 5. Turn your head to the opposite direction until your unaffected ear is facing down. Your head should continue to dangle. 6. Hold this position for at least 30 seconds. If you feel dizzy or have symptoms of vertigo, continue to hold the position until the symptoms stop. 7. Turn your whole body to the same side as your head so that you are positioned on your side. Your head will now be nearly facedown and no longer needs to dangle. Hold for at least 30 seconds. If you feel dizzy or have symptoms of vertigo, continue to hold the position until the symptoms stop. 8. Sit back up. You can repeat the maneuver in 24 hours if your vertigo does not go away. Follow these instructions at home: For 24 hours after doing the Ml maneuver: ??? Keep your head in an upright position. ??? When lying down to sleep or rest, keep your head raised (elevated) with two or more pillows. ??? Avoid excessive neck movements. Activity ??? Do not drive or use machinery if you feel dizzy. ??? After doing the Ml maneuver, return to your normal activities as told by your health care provider. Ask your health care provider what activities are safe for you. General instructions ??? Drink enough fluid to keep your urine pale yellow. ??? Do not drink alcohol. ??? Take eaoy-zsu-cappfyz and prescription medicines only as told by your health care provider. ??? Keep all follow-up visits. This is important. Preventing vertigo symptoms Ask your health care provider if there is anything you should do at home to prevent vertigo. He or she may recommend that you: ??? Keep your head elevated with two or more pillows while you sleep. ??? Do not sleep on the side of your affected ear. ??? Get up slowly from bed. ??? Avoid sudden movements during the day. ??? Avoid extreme head positions or movement, such as looking up or bending over. Contact a health care provider if: ??? Your vertigo gets worse. ??? You have other symptoms, including: ? Nausea. ? Vomiting. ? Headache. Get help right away if you: ??? Have vision changes. ??? Have a headache or neck pain that is severe or getting worse. ??? Cannot stop vomiting. ??? Have new numbness or weakness in any part of your body. These symptoms may represent a serious problem that is an emergency. Do not wait to see if the symptoms will go away. Get medical help right away. Call your local emergency services (506 in the [place] Do not drive yourself to the hospital. Summary ??? Vertigo is the feeling that you or your surroundings are moving when they are not. ??? The Ml maneuver is an exercise that relieves symptoms of vertigo. ??? If the Ml maneuver is done correctly, it is considered safe. This information is not intended to replace advice given to you by your health care provider. Make sure you discuss any questions you have with your health care provider. Document Revised: 10/17/2021 Document Reviewed: 10/17/2021 [facility] Patient Education ??? 2023 [employer]. Vertigo Vertigo is the feeling that you or your surroundings are moving when they are not. This feeling can come and go at any time. Vertigo often goes away on its own. Vertigo can be dangerous if it occurs while you are doing something that could endanger yourself or others, such as driving or operating machinery. Your health care provider will do tests to try to determine the cause of your vertigo. Tests will also help your health care provider decide how best to treat your condition. Follow these instructions at home: Eating and drinking ??? Dehydration can make vertigo worse. Drink enough fluid to keep your urine pale yellow. ??? Do not drink alcohol. Activity ??? Return to your normal activities as told by your health care provider. Ask your health care provider what activities are safe for you. ??? In the morning, first sit up on the side of the bed. When you feel okay, stand slowly while you hold onto something until you know that your balance is fine. ??? Move slowly. Avoid sudden body or head movements or certain positions, as told by your health care provider. ??? If you have trouble walking or keeping your balance, try using a cane for stability. If you feel dizzy or unstable, sit down right away. ??? Avoid doing any tasks that would cause danger to you or others if vertigo occurs. ??? Avoid bending down if you feel dizzy. Place items in your home so that they are easy for you to reach without bending or leaning over. ??? Do not drive or use machinery if you feel dizzy. General instructions ??? Take asgg-gpq-xaqsdvm and prescription medicines only as told by your health care provider. ??? Keep all follow-up visits. This is important. Contact a health care provider if: ??? Your medicines do not relieve your vertigo or they make it worse. ??? Your condition gets worse or you develop new symptoms. ??? You have a fever. ??? You develop nausea or vomiting, or if nausea gets worse. ??? Your family or friends notice any behavioral changes. ??? You have numbness or a prickling and tingling sensation in part of your body. Get help right away if you: ??? Are always dizzy or you faint. ??? Develop severe headaches. ??? Develop a stiff neck. ??? Develop sensitivity to light. ??? Have difficulty moving or speaking. ??? Have weakness in your hands, arms, or legs. ??? Have changes in your hearing or vision. These symptoms may represent a serious problem that is an emergency. Do not wait to see if the symptoms will go away. Get medical help right away. Call your local emergency services (911 in the [place] Do not drive yourself to the hospital. Summary ??? Vertigo is the feeling that you or your surroundings are moving when they are not. ??? Your health care provider will do tests to try to determine the cause of your vertigo. ??? Follow instructions for home care. You may be told to avoid certain tasks, positions, or movements. ??? Contact a health care provider if your medicines do not relieve your symptoms, or if you have a fever, nausea, vomiting, or changes in behavior. ??? Get help right away if you have severe headaches or difficulty speaking, or you develop hearing or vision problems. This information is not intended to replace advice given to you by your health care provider. Make sure you discuss any questions you have with your health care provider. Document Revised: 10/17/2021 Document Reviewed: 10/17/2021 [employer] Patient Education ??? 2023 [employer] PATIENT EDUCATION Observed: 02/02/2025 5:56 PM Status: C Source: [facility] Patient Education ENT Earache, Adult An earache, or ear pain, can be caused by many things, including: ??? An infection. ??? Ear wax buildup. ??? Ear pressure. ??? Something in the ear that should not be there (foreign body). ??? A sore throat. ??? Tooth problems. ??? Jaw problems. Treatment of the earache will depend on the cause. If the cause is not clear or cannot be known, you may need to watch your symptoms until your earache goes away or until a cause is found. Follow these instructions at home: Medicines ??? Take or apply niru-pab-ccgxesi and prescription medicines only as told by your health care provider. ??? If you were prescribed antibiotics, use them as told by your health care provider. Do not stop using the antibiotic even if you start to feel better. ??? Do not put anything in your ear other than medicine that is prescribed by your health care provider. Managing pain If directed, apply heat to the affected area as often as told by your health care provider. Use the heat source that your health care provider recommends, such as a moist heat pack or a heating pad. ??? Place a towel between your skin and the heat source. ??? Leave the heat on for 20?30 minutes. ??? If your skin turns bright red, remove the heat right away to prevent barr. The risk of barr is higher if you cannot feel pain, heat, or cold. If directed, put ice on the affected area. To do this: ??? Put ice in a plastic bag. ??? Place a towel between your skin and the bag. ??? Leave the ice on for 20 minutes, 2?3 times a day. ??? If your skin turns bright red, remove the ice right away to prevent skin damage. The risk of skin damage is higher if you cannot feel pain, heat, or cold. General instructions ??? Pay attention to any changes in your symptoms. ??? Try resting in an upright position instead of lying down. This may help to reduce pressure in your ear and relieve pain. ??? Chew gum if it helps to relieve your ear pain. ??? Treat any allergies as told by your health care provider. ??? Drink enough fluid to keep your urine pale yellow. ??? It is up to you to get the results of any tests that were done. Ask your health care provider, or the department that is doing the tests, when your results will be ready. Contact a health care provider if: ??? Your pain does not improve within 2 days. ??? Your earache gets worse. ??? You have new symptoms. ??? You have a fever. Get help right away if: ??? You have a severe headache. ??? You have a stiff neck. ??? You have trouble swallowing. ??? You have redness or swelling behind your ear. ??? You have fluid or blood coming from your ear. ??? You have hearing loss. ??? You feel dizzy. This information is not intended to replace advice given to you by your health care provider. Make sure you discuss any questions you have with your health care provider. Document Revised: 03/31/2023 Document Reviewed: 03/31/2023 Elsevier Patient Education ? 2023 [facility]Neurology How to Perform the Ml Maneuver The Ml maneuver is an exercise that relieves symptoms of vertigo. Vertigo is the feeling that you or your surroundings are moving when they are not. When you feel vertigo, you may feel like the room is spinning and may have trouble walking. The Ml maneuver is used for a type of vertigo caused by a calcium deposit in a part of the inner ear. The maneuver involves changing head positions to help the deposit move out of the area. You can do this maneuver at home whenever you have symptoms of vertigo. You can repeat it in 24 hours if your vertigo has not gone away. Even though the Ml maneuver may relieve your vertigo for a few weeks, it is possible that your symptoms will return. This maneuver relieves vertigo, but it does not relieve dizziness. What are the risks? If it is done correctly, the Ml maneuver is considered safe. Sometimes it can lead to dizziness or nausea that goes away after a short time. If you develop other symptoms?such as changes in vision, weakness, or numbness?stop doing the maneuver and call your health care provider. Supplies needed: ??? A bed or table. ??? A pillow. How to do the Ml maneuver 1. Sit on the edge of a bed or table with your back straight and your legs extended or hanging over the edge of the bed or table. 2. Turn your head custodial toward the affected ear or side as told by your health care provider. 3. Lie backward quickly with your head turned until you are lying flat on your back. Your head should dangle (head-hanging position). You may want to position a pillow under your shoulders. 4. Hold this position for at least 30 seconds. If you feel dizzy or have symptoms of vertigo, continue to hold the position until the symptoms stop. 5. Turn your head to the opposite direction until your unaffected ear is facing down. Your head should continue to dangle. 6. Hold this position for at least 30 seconds. If you feel dizzy or have symptoms of vertigo, continue to hold the position until the symptoms stop. 7. Turn your whole body to the same side as your head so that you are positioned on your side. Your head will now be nearly facedown and no longer needs to dangle. Hold for at least 30 seconds. If you feel dizzy or have symptoms of vertigo, continue to hold the position until the symptoms stop. 8. Sit back up. You can repeat the maneuver in 24 hours if your vertigo does not go away. Follow these instructions at home: For 24 hours after doing the Ml maneuver: ??? Keep your head in an upright position. ??? When lying down to sleep or rest, keep your head raised (elevated) with two or more pillows. ??? Avoid excessive neck movements. Activity ??? Do not drive or use machinery if you feel dizzy. ??? After doing the Ml maneuver, return to your normal activities as told by your health care provider. Ask your health care provider what activities are safe for you. General instructions ??? Drink enough fluid to keep your urine pale yellow. ??? Do not drink alcohol. ??? Take gtnv-srt-ilbuhhb and prescription medicines only as told by your health care provider. ??? Keep all follow-up visits. This is important. Preventing vertigo symptoms Ask your health care provider if there is anything you should do at home to prevent vertigo. He or she may recommend that you: ??? Keep your head elevated with two or more pillows while you sleep. ??? Do not sleep on the side of your affected ear. ??? Get up slowly from bed. ??? Avoid sudden movements during the day. ??? Avoid extreme head positions or movement, such as looking up or bending over. Contact a health care provider if: ??? Your vertigo gets worse. ??? You have other symptoms, including: ? Nausea. ? Vomiting. ? Headache. Get help right away if you: ??? Have vision changes. ??? Have a headache or neck pain that is severe or getting worse. ??? Cannot stop vomiting. ??? Have new numbness or weakness in any part of your body. These symptoms may represent a serious problem that is an emergency. Do not wait to see if the symptoms will go away. Get medical help right away. Call your local emergency services (911 in the [place] Do not drive yourself to the hospital. Summary ??? Vertigo is the feeling that you or your surroundings are moving when they are not. ??? The Ml maneuver is an exercise that relieves symptoms of vertigo. ??? If the Ml maneuver is done correctly, it is considered safe. This information is not intended to replace advice given to you by your health care provider. Make sure you discuss any questions you have with your health care provider. Document Revised: 10/17/2021 Document Reviewed: 10/17/2021 [facility] Patient Education ? 2023 [facility]Vertigo Vertigo is the feeling that you or your surroundings are moving when they are not. This feeling can come and go at any time. Vertigo often goes away on its own. Vertigo can be dangerous if it occurs while you are doing something that could endanger yourself or others, such as driving or operating machinery. Your health care provider will do tests to try to determine the cause of your vertigo. Tests will also help your health care provider decide how best to treat your condition. Follow these instructions at home: Eating and drinking ??? Dehydration can make vertigo worse. Drink enough fluid to keep your urine pale yellow. ??? Do not drink alcohol. Activity ??? Return to your normal activities as told by your health care provider. Ask your health care provider what activities are safe for you. ??? In the morning, first sit up on the side of the bed. When you feel okay, stand slowly while you hold onto something until you know that your balance is fine. ??? Move slowly. Avoid sudden body or head movements or certain positions, as told by your health care provider. ??? If you have trouble walking or keeping your balance, try using a cane for stability. If you feel dizzy or unstable, sit down right away. ??? Avoid doing any tasks that would cause danger to you or others if vertigo occurs. ??? Avoid bending down if you feel dizzy. Place items in your home so that they are easy for you to reach without bending or leaning over. ??? Do not drive or use machinery if you feel dizzy. General instructions ??? Take nkok-ftg-kpovwsh and prescription medicines only as told by your health care provider. ??? Keep all follow-up visits. This is important. Contact a health care provider if: ??? Your medicines do not relieve your vertigo or they make it worse. ??? Your condition gets worse or you develop new symptoms. ??? You have a fever. ??? You develop nausea or vomiting, or if nausea gets worse. ??? Your family or friends notice any behavioral changes. ??? You have numbness or a prickling and tingling sensation in part of your body. Get help right away if you: ??? Are always dizzy or you faint. ??? Develop severe headaches. ??? Develop a stiff neck. ??? Develop sensitivity to light. ??? Have difficulty moving or speaking. ??? Have weakness in your hands, arms, or legs. ??? Have changes in your hearing or vision. These symptoms may represent a serious problem that is an emergency. Do not wait to see if the symptoms will go away. Get medical help right away. Call your local emergency services (911 in the [place] Do not drive yourself to the hospital. Summary ??? Vertigo is the feeling that you or your surroundings are moving when they are not. ??? Your health care provider will do tests to try to determine the cause of your vertigo. ??? Follow instructions for home care. You may be told to avoid certain tasks, positions, or movements. ??? Contact a health care provider if your medicines do not relieve your symptoms, or if you have a fever, nausea, vomiting, or changes in behavior. ??? Get help right away if you have severe headaches or difficulty speaking, or you develop hearing or vision problems. This information is not intended to replace advice given to you by your health care provider. Make sure you discuss any questions you have with your health care provider. Document Revised: 10/17/2021 Document Reviewed: 10/17/2021 [employer] Patient Education ? 2023 [facility] CBC PNL BLD AUTO Collected: 10:02 AM Status: F Source: [facility] Order Comment: Specimen Type : BLOOD SPECIMEN Ordering Facility: [facility] Address: [address] [place] [address] TYPE CODE TESTS RESULT OUT OF RANGE REFERENCE UNITS LAB 6690-2(INC) WBC # Bld Auto 6.49 3.70-11.00 k/uL LAB 789-8(LOINC) RBC # Bld Auto 4.52 3.90-5.20 m/uL LAB 718-7(LOINC) Hgb Bld-mCnc 12.6 11.5-15.5 g/dL LAB 4544-3(LOINC) Hct VFr Bld Auto 39.9 36.0-46.0 % LAB 787-2(LOINC) MCV RBC Auto 88.3 80.0-100.0 fL LAB 785-6(LOINC) MCH RBC Qn Auto 27.9 26.0-34.0 pg LAB 786-4(LOINC) MCHC RBC Auto-mCnc 31.6 30.5-36.0 g/dL LAB 83227-5(LOINC) RDW RBC-Rto 14.3 11.5-15.0 % LAB 777-3(LOINC) Platelet # Bld Auto 325 150-400 k/uL LAB 55654-9(LOINC) PMV Bld Auto 11.9 9.0-12.7 fL LAB 771-6(LOINC) nRBC # Bld Auto <0.01 <0.01 k/uL Performed By: #### [id number] # ### [facility] CLIA [id number] [address] [place] [address] [place] [address] [place] Observed: 01/11/2025 9:20 AM Status: COMPLETED Source: [facility] Office Visit (INTMLN) GALILEA BAPTISTE ([id number]) 1990 F Date Time Provider Department 01/11/25 9:20 AM CRISTHIAN JAMISON INTMicheline During your visit today, we recorded the following information about you: Temperature Pulse Blood pressure Weight 97.7 degrees 74/minute 114/78 79.5 kg Height Last Period 1.651 m 11/12/24 Cristhian Jamison MD 01/11/2025 9:59 AM Addendum Galilea Baptiste is a 34 year old female Chief complaint: Establish Care (Headaches/ 3-4 x's a year) Subjective HPI: Comes with Juan R. C/o headaches all around and behind eyes for past 10 years, on and off, last episodes around 12/2024, Also nausea, blurry vision, difficulty to read, throbbing. Not disabling. No prior trauma. Asthma with episodes of SOB, chest tightness and cough, treated with albuteroll as needed. Last use 10/2024 GERD for past 15 years, EGD back then with gastritis per patient. C/o recent acute URI 2 months ago with nasal pressure, loss sense of smell. Then recovered now feels pressure in sinuses. Review of Systems Constitutional: Negative for chills and fever. No recent history of trauma, surgery, infection or malignancy. HENT: Positive for congestion, rhinorrhea and sneezing. Negative for sore throat and tinnitus. Respiratory: Negative for cough and shortness of breath. Cardiovascular: Negative for chest pain. Gastrointestinal: Negative for abdominal pain, nausea and vomiting. Musculoskeletal: Negative for back pain. Neurological: Positive for headaches. Psychiatric/Behavioral: Negative for dysphoric mood and sleep disturbance. The patient is not nervous/anxious. Objective BP 114/78 (BP Site: Left Arm, BP Position: Sitting, BP Cuff Size: Regular Adult) Pulse 74 Temp 36.5 ?C (97.7 ?F) Ht 165.1 cm (5' 5 ) Wt 79.5 kg (175 lb 2.5 oz) LMP 11/12/2024 SpO2 99% BMI 29.15 kg/m? BMI Readings from Last 3 Encounters: 01/11/25 : 29.15 kg/m? Last Wt 01/11/25 : 79.5 kg (175 lb 2.5 oz) Last BP 01/11/25 : 114/78 Physical Exam Constitutional: Appearance: Normal appearance. HENT: Head: Atraumatic. Eyes: Extraocular Movements: Extraocular movements intact. Pupils: Pupils are equal, round, and reactive to light. Funduscopic exam: Right eye: No papilledema. Left eye: No papilledema. Cardiovascular: Rate and Rhythm: Normal rate and regular rhythm. Heart sounds: Normal heart sounds. No murmur heard. Pulmonary: Effort: Pulmonary effort is normal. Breath sounds: Normal breath sounds. Abdominal: Palpations: Abdomen is soft. There is no mass. Tenderness: There is no abdominal tenderness. There is no guarding or rebound. Musculoskeletal: Cervical back: Normal. No tenderness. Normal range of motion. Neurological: Mental Status: She is alert. Cranial Nerves: Cranial nerves 2-12 are intact. Sensory: Sensation is intact. Motor: Motor function is intact. Gait: Gait is intact. Psychiatric: Mood and Affect: Mood normal. Behavior: Behavior normal. No results found for: HBA1C , HBA0 HBA0=Estimated average glucose No results found for: CHOL , HDL , LDL , TG No results found for: GLUC , BUN , CREAT , NA , K , CHLOR , CO2 , TPROT , ALB , CA , ALKPHOS , TBILI , AST , ALT No results found for: PCRAT , UALBCR PCRAT=Protein Creatinine Ratio; UABCR=Albumin Creat Ratio Impression/Recommendations Social History Social History Narrative Not on file Galilea Baptiste is a 34 year old female Body mass index is 29.15 kg/m?. - Headaches all around and behind eyes for past 10 years, on and off, last episodes around 12/2024, Also nausea, blurry vision, difficulty to read, throbbing. NO focal neuro, worsening or worrisome features. Question of tension vs migraine headaches. R/o anemia. - Asthma mild intermittent treated with albuteroll as needed. Last use 10/2024 - GERD for past 15 years, EGD back then with gastritis per patient. Treated with Tums. - Recent acute URI 2 months ago with nasal pressure, loss sense of smell. Then recovered now feels pressure in sinuses, and freqeunt sneezing, compatible with allergic rhinitis. Plan: Order CBC. Counseling about GI irritants. Trial of omeprazole 20 mg daily for 2 weeks, then as needed. Trial of flonase daily for 2 weeks and loratadine as needed. Return if symptoms worsen or fail to improve. Diagnoses and all orders for this visit: Chronic tension-type headache, not intractable - COMPLETE BLOOD COUNT; Future Screening for depression - DEPRESSION SCREENING Non-seasonal allergic rhinitis, unspecified trigger - fluticasone (FLONASE) 50 mcg/actuation nasal spray; Use 1 [place] in each nostril daily at bedtime. - loratadine (CLARITIN) 10 mg tablet; Take 1 tablet by mouth once daily. Gastroesophageal reflux disease without esophagitis - omeprazole (PRILOSEC) 20 mg capsule; Take 1 capsule by mouth once daily. MD Gene Franco Rafael, MD 01/11/2025 9:48 AM Signed List of Common Gastrointestinal Irritants* NSAIDS: advil, motrin, ibuprofen, aleve, naproxen, aspirin, etc. Pain medications substitutions include acetaminophen and diclofenac gel (voltaren) available [id number]-tezajhv. Stimulants: coffee (including decaffeinated), tea, chocolate, weight loss products Tea drinkers can substitute non-citrus herbal and sun brewed teas. Carbonation: sodas and seltzer, energy drinks (Red bull, Monster) Alcohol including beer, wine and liquor. Nicotine: cigarettes,e-cigarettes (vaping) or chewing tobacco products. Acid foods: orange, ekwok and other citrus fruit and juice; tomato and tomato juice or sauce. Fatty or deep fried foods. Spicy food / [place]: including hot sauce and hot peppers. *Most people are not sensitive to ALL of these products; your goal is to find the foods that make YOUR symptoms worse Certain foods and drinks have been associated with worsening gastrointestinal symptoms including heartburn, reflux, abdominal pain, constipation, diarrhea, bloating. If you suffer from any of these conditions, you may wish to try eliminating one or more of these foods from your diet and see if your symptoms improve. If the gastrointestinal symptoms are related to dietary factors, strict adherence to a diet that eliminates the food should bring marked relief in 10-14 days. Once you are feeling better, you can begin to add foods back into your diet, one at a time. If symptoms return, you will be able to identify the irritant. Allergies As of Date: 01/11/2025 Noted Allergy Reaction CEPHALEXIN 11/04/2024 7 - Swelling Comments: Face tingling, tongue swelling PENICILLINS 02/15/2004 4 - Hives 7 - Swelling Comments: As a child, with hives and swelling SULFAMETHOXAZOLE-TRIMETHOPRIM 03/01/2018 4 - Hives Comments: Mouth tingling, and face swelling Date Reviewed: 01/11/2025 Reviewed by: Cristhian Jamison MD - Fully Assessed Reason for Visit: Establish Care [42] Cmt: Headaches/ 3-4 x's a year Primary Visit Diagnosis:Chronic tension-type headache, not intractable [G44.229] Other Visit Diagnoses:Screening for depression [Z13.31] Non-seasonal allergic rhinitis, unspecified trigger [J30.89] Mild intermittent asthma, unspecified whether complicated [J45.20] Gastroesophageal reflux disease, unspecified whether esophagitis present [K21.9] Order(s):DEPRESSION SCREENING [9373911] Order #: [id number]: 1 COMPLETE BLOOD COUNT [SQCBC] Order #: [id number] FUTURE fluticasone (FLONASE) 50 mcg/actuation nasal sprayUse 1 [place] in each nostril daily at bedtime.Disp: 15.8 mLRfl: 5 loratadine (CLARITIN) 10 mg tabletTake 1 tablet by mouth once daily.Disp: 90 tabletRfl: 1 omeprazole (PRILOSEC) 20 mg capsuleTake 1 capsule by mouth once daily.Disp: 30 capsuleRfl: 0 Prescriptions as of 01/11/2025 - albuterol HFA (PROVENTIL HFA, VENTOLIN HFA) 90 mcg/actuation inhaler INHALE 1 PUFF BY MOUTH EVERY 4 HOURS NEEDED - calcium carbonate (TUMS ORAL) Take by mouth. - ibuprofen (MOTRIN ORAL) Take by mouth. - fluticasone (FLONASE) 50 mcg/actuation nasal spray Use 1 [place] in each nostril daily at bedtime. - loratadine (CLARITIN) 10 mg tablet Take 1 tablet by mouth once daily. - omeprazole (PRILOSEC) 20 mg capsule Take 1 capsule by mouth once daily. Problem List As Of Date 01/11/2025 Noted Resolved Dysphagia [R13.10] 06/01/2007 Generalized anxiety disorder [F41.1] 07/17/2023 Helicobacter pylori infection [A04.8] 02/23/2004 Pain in pelvis [R10.2] 07/17/2023 Chronic tension-type headache, not intractable *01/11/2025 Mild intermittent asthma [J45.20] 01/11/2025 Gastroesophageal reflux disease [K21.9] 01/11/2025 Other instructions from your clinician: List of Common Gastrointestinal Irritants* NSAIDS: advil, motrin, ibuprofen, aleve, naproxen, aspirin, etc. Pain medications substitutions include acetaminophen and diclofenac gel (voltaren) available [id number]-ldyyuvu. Stimulants: coffee (including decaffeinated), tea, chocolate, weight loss products Tea drinkers can substitute non-citrus herbal and sun brewed teas. Carbonation: sodas and seltzer, energy drinks (Red bull, Monster) Alcohol including beer, wine and liquor. Nicotine: cigarettes,e-cigarettes (vaping) or chewing tobacco products. Acid foods: orange, ekwok and other citrus fruit and juice; tomato and tomato juice or sauce. Fatty or deep fried foods. Spicy food / [place]: including hot sauce and hot peppers. *Most people are not sensitive to ALL of these products; your goal is to find the foods that make YOUR symptoms worse Certain foods and drinks have been associated with worsening gastrointestinal symptoms including heartburn, reflux, abdominal pain, constipation, diarrhea, bloating. If you suffer from any of these conditions, you may wish to try eliminating one or more of these foods from your diet and see if your symptoms improve. If the gastrointestinal symptoms are related to dietary factors, strict adherence to a diet that eliminates the food should bring marked relief in 10-14 days. Once you are feeling better, you can begin to add foods back into your diet, one at a time. If symptoms return, you will be able to identify the irritant. Prescriptions ordered this encounter Disp Refills Start End FLUTICASONE PROPIONATE 50 MCG/ACTUAT* 15.8* 5 01/11/2025 Route: EACH NOSTRIL Sig: Use 1 [place] in each nostril daily at bedtime. LORATADINE 10 MG TABLET 90 t* 1 01/11/2025 Route: ORAL Sig: Take 1 tablet by mouth once daily. OMEPRAZOLE 20 MG CAPSULE,DELAYED REL* 30 c* 0 01/11/2025 Route: ORAL Sig: Take 1 capsule by mouth once daily. Level of Service: OFFICE/OUTPATIENT NEW MODERATE MDM 45 MINUTES [85303] Additional E/M codes: VISIT CPLX INHERENT EANDM ASSOC WITH MED * Disposition: Return if symptoms worsen or fail to improve. Follow-up and Disposition History for Encounter Date Provider Department Center 01/11/2025 [id number] [facility]*INTMLN [facility] Encounter Status:Closed by CRISTHIAN JAMISON on 01/11/25 PROGRESS Observed: 01/11/2025 8:52 AM Status: COMPLETED Source: [facility] HNO ID: [id number] Author: CRISTHIAN JAMISON MD Service: ? Author Type: Physician Type: Progress Notes Filed: 01/11/2025 09:59 Note Text: Galilea Baptiste is a 34 year old female Chief complaint: Establish Care (Headaches/ 3-4 x's a year) Subjective HPI: Comes with Juan R. C/o headaches all around and behind eyes for past 10 years, on and off, last episodes around 12/2024, Also nausea, blurry vision, difficulty to read, throbbing. Not disabling. No prior trauma. Asthma with episodes of SOB, chest tightness and cough, treated with albuteroll as needed. Last use 10/2024 GERD for past 15 years, EGD back then with gastritis per patient. C/o recent acute URI 2 months ago with nasal pressure, loss sense of smell. Then recovered now feels pressure in sinuses. Review of Systems Constitutional: Negative for chills and fever. No recent history of trauma, surgery, infection or malignancy. HENT: Positive for congestion, rhinorrhea and sneezing. Negative for sore throat and tinnitus. Respiratory: Negative for cough and shortness of breath. Cardiovascular: Negative for chest pain. Gastrointestinal: Negative for abdominal pain, nausea and vomiting. Musculoskeletal: Negative for back pain. Neurological: Positive for headaches. Psychiatric/Behavioral: Negative for dysphoric mood and sleep disturbance. The patient is not nervous/anxious. Objective BP 114/78 (BP Site: Left Arm, BP Position: Sitting, BP Cuff Size: Regular Adult) Pulse 74 Temp 36.5 ?C (97.7 ?F) Ht 165.1 cm (5' 5 ) Wt 79.5 kg (175 lb 2.5 oz) LMP 11/12/2024 SpO2 99% BMI 29.15 kg/m? BMI Readings from Last 3 Encounters: 01/11/25 : 29.15 kg/m? Last Wt 01/11/25 : 79.5 kg (175 lb 2.5 oz) Last BP 01/11/25 : 114/78 Physical Exam Constitutional: Appearance: Normal appearance. HENT: Head: Atraumatic. Eyes: Extraocular Movements: Extraocular movements intact. Pupils: Pupils are equal, round, and reactive to light. Funduscopic exam: Right eye: No papilledema. Left eye: No papilledema. Cardiovascular: Rate and Rhythm: Normal rate and regular rhythm. Heart sounds: Normal heart sounds. No murmur heard. Pulmonary: Effort: Pulmonary effort is normal. Breath sounds: Normal breath sounds. Abdominal: Palpations: Abdomen is soft. There is no mass. Tenderness: There is no abdominal tenderness. There is no guarding or rebound. Musculoskeletal: Cervical back: Normal. No tenderness. Normal range of motion. Neurological: Mental Status: She is alert. Cranial Nerves: Cranial nerves 2-12 are intact. Sensory: Sensation is intact. Motor: Motor function is intact. Gait: Gait is intact. Psychiatric: Mood and Affect: Mood normal. Behavior: Behavior normal. No results found for: HBA1C , HBA0 HBA0=Estimated average glucose No results found for: CHOL , HDL , LDL , TG No results found for: GLUC , BUN , CREAT , NA , K , CHLOR , CO2 , TPROT , ALB , CA , ALKPHOS , TBILI , AST , ALT No results found for: PCRAT , UALBCR PCRAT=Protein Creatinine Ratio; UABCR=Albumin Creat Ratio Impression/Recommendations Social History Social History Narrative Not on file Galilea Baptiste is a 34 year old female Body mass index is 29.15 kg/m?. - Headaches all around and behind eyes for past 10 years, on and off, last episodes around 12/2024, Also nausea, blurry vision, difficulty to read, throbbing. NO focal neuro, worsening or worrisome features. Question of tension vs migraine headaches. R/o anemia. - Asthma mild intermittent treated with albuteroll as needed. Last use 10/2024 - GERD for past 15 years, EGD back then with gastritis per patient. Treated with Tums. - Recent acute URI 2 months ago with nasal pressure, loss sense of smell. Then recovered now feels pressure in sinuses, and freqeunt sneezing, compatible with allergic rhinitis. Plan: Order CBC. Counseling about GI irritants. Trial of omeprazole 20 mg daily for 2 weeks, then as needed. Trial of flonase daily for 2 weeks and loratadine as needed. Return if symptoms worsen or fail to improve. Diagnoses and all orders for this visit: Chronic tension-type headache, not intractable - COMPLETE BLOOD COUNT; Future Screening for depression - DEPRESSION SCREENING Non-seasonal allergic rhinitis, unspecified trigger - fluticasone (FLONASE) 50 mcg/actuation nasal spray; Use 1 [place] in each nostril daily at bedtime. - loratadine (CLARITIN) 10 mg tablet; Take 1 tablet by mouth once daily. Gastroesophageal reflux disease without esophagitis - omeprazole (PRILOSEC) 20 mg capsule; Take 1 capsule by mouth once daily. Cristhian Cordero MD FAMILY MEDICINE OFFICE/CLINI C NOTE Observed: 12/18/2024 1:03 PM Status: F Source: [facility] Family Medicine Office/Clini c Note Chief Complaint sinus congestion HPI Staff 34 year old female presents with sinus congestion, cough, dizziness for the past 2-3 weeks otc: claritin, flonase dx with flu around [place], sinus symptoms since History of Present Illness I have reviewed and verified the staff HPI to be accurate for this encounter. Portions of this record may have been created with voice recognition artificial intelligence software, specifically [employer], [employer] and or [employer]. Substitutions may have occurred due to the inherent limitations of voice recognition and artificial intelligence software. Patient presents in office today with complaints of not feeling well x 2 to 3 weeks. Patient was originally diagnosed with influenza on 11/29/2024. She reports ongoing sinus congestion which she feels is worsening, head pressure, moist productive cough, dizziness after coughing fits. She does admit to decreased appetite. Denies any chest pain, shortness of breath or wheezing, denies any changes in bladder or bowel output. She is currently using Claritin and Flonase at home with minimal improvement of her symptoms. Review of Systems PHQ Score Initial Depression Screen Score: 0 SCORE Physical Exam Vitals & Measurements T: 37 ???C(Tympanic) HR: 79(Peripheral) BP: 104/70 SpO2: 99% HT: 64 in HT: 162 cm WT: 80.5 kg WT: 177.472 lb BMI: 30.67 General: Well developed, well nourished, in no acute distress Eyes: not assessed Ears: No deformity or lesion of external ear. Canals and TM appear normal bilaterally. TM???s intact, not inflamed, with normal light reflex. Hearing grossly normal to conversational speech Nose: mild nasal mucosa inflammation and edema. Moderate discomfort on palpation of the maxillary sinuses. Mouth: Mucous membranes moist. Normal oropharynx, and posterior pharynx without lesions or exudates. Tongue normal. Uvula midline, no trismus or drooling. Mild erythema the posterior pharynx with postnasal drip noted. Neck: shotty anterior cervical nodes bilaterally Lungs: clear to auscultation throughout, no wheezing, no rales. No respiratory distress Cardio: regular rate and rhythm, no murmur Abdomen: not assessed Musculoskeletal: not assessed Extremity: not assessed Neurologic: not assessed Skin: not assessed Mental Status: Alert and oriented x3. Normal mood and affect Assessment/Plan 1. Acute sinusitis with symptoms > 10 days (J01.90: Acute sinusitis, unspecified) Given duration of symptoms and exam, will cover for sinusitis with doxycycline. Finish entire course. Fluids/rest, PRN tylenol/ibuprofen for pain and/or fever encouraged. May use Mucinex DM for symptomatic tx. Follow up with PCP if not improving over next 5-7 days with ATB or significantly worsening. Patient verbalized understanding of treatment plan. Ordered: doxycycline, 100 mg = 1 cap(s), Oral, BID, may substitute hyclate for monohydrate based on availability, X 7 day(s), # 14 cap(s), Refills(s) 0, Pharmacy: [id number], 162, cm, 12/18/24 12:44:00 EST, Height/Length Dosing, 80.5, kg, 12/18/24 12:44:00... Follow-up With When Contact Information ROLY AVILA CNP Only if needed [phone] Additional Instructions: Patient Education Sinus Infection, Adult Problem List/Past Medical History Ongoing Generalized anxiety disorder with panic attacks Historical No qualifying data Medications doxycycline hyclate 100 mg Cap, 100 mg= 1 cap(s), Oral, BID Allergies Bactrim DS (Hives) penicillin (Anaphylactic reaction) Social History Alcohol - Denies Alcohol Use, 12/29/2019 Current, 12/25/2019 Substance Abuse - Denies Substance Abuse, 12/29/2019 Current, 12/25/2019 Tobacco - Denies Tobacco Use, 12/29/2019 Never (less than 100 in lifetime) Tobacco Use:. Never Smokeless Tobacco Use:., 04/11/2024 Never (less than 100 in lifetime) Tobacco Use:., 12/25/2019 Immunizations Vaccine Date Status Comments SARS-CoV-2 mRNA (tozinameran 5y-11y) vac - Not Given Postpone due to refusal influenza virus vaccine, inactivated 02/19/2021 Recorded tetanus-diphtheria toxoids 03/29/2019 Recorded Td(adult) unspecified formulation 12/12/2003 Recorded hepatitis B pediatric vaccine 01/18/1997 Recorded haemophilus b conj (PRP-OMP) vaccine 01/18/1997 Recorded hepatitis B pediatric vaccine 06/23/1996 Recorded haemophilus b conj (PRP-OMP) vaccine 06/23/1996 Recorded hepatitis B pediatric vaccine 05/26/1996 Recorded haemophilus b conj (PRP-OMP) vaccine 05/26/1996 Recorded DTaP, unspecified formulation 05/26/1996 Recorded hepatitis B pediatric vaccine 1991 Recorded Hib, unspecified formulation 1991 Recorded poliovirus vaccine, inactivated 1991 Recorded hepatitis B pediatric vaccine 1991 Recorded Hib, unspecified formulation 1991 Recorded poliovirus vaccine, inactivated 1991 Recorded hepatitis B pediatric vaccine 1991 Recorded Hib, unspecified formulation 1991 Recorded Result Comment: Electronical ly Signed By: LUKAS Pandey APRN, Jodi Velasco\.br\Date and Time Signed: 12/18/24 13:03 EST PATIENT EDUCATION Observed: 12/18/2024 1:03 PM Status: F Source: [facility] Patient Education Infectious Disease Sinus Infection, Adult A sinus infection, also called sinusitis, is inflammation of your sinuses. Sinuses are hollow spaces in the bones around your face. Your sinuses are located: ??? Around your eyes. ??? In the middle of your forehead. ??? Behind your nose. ??? In your cheekbones. Mucus normally drains out of your sinuses. When your nasal tissues become inflamed or swollen, mucus can become trapped or blocked. This allows bacteria, viruses, and fungi to grow, which leads to infection. Most infections of the sinuses are caused by a virus. A sinus infection can develop quickly. It can last for up to 4 weeks (acute) or for more than 12 weeks (chronic). A sinus infection often develops after a cold. What are the causes? This condition is caused by anything that creates swelling in the sinuses or stops mucus from draining. This includes: ??? Allergies. ??? Asthma. ??? Infection from bacteria or viruses. ??? Deformities or blockages in your nose or sinuses. ??? Abnormal growths in the nose (nasal polyps). ??? Pollutants, such as chemicals or irritants in the air. ??? Infection from fungi. This is rare. What increases the risk? You are more likely to develop this condition if you: ??? Have a weak body defense system (immune system). ??? Do a lot of swimming or diving. ??? Overuse nasal sprays. ??? Smoke. What are the signs or symptoms? The main symptoms of this condition are pain and a feeling of pressure around the affected sinuses. Other symptoms include: ??? Stuffy nose or congestion that makes it difficult to breathe through your nose. ??? Thick yellow or greenish drainage from your nose. ??? Tenderness, swelling, and warmth over the affected sinuses. ??? A cough that may get worse at night. ??? Decreased sense of smell and taste. ??? Extra mucus that collects in the throat or the back of the nose (postnasal drip) causing a sore throat or bad breath. ??? Tiredness (fatigue). ??? Fever. How is this diagnosed? This condition is diagnosed based on: ??? Your symptoms. ??? Your medical history. ??? A physical exam. ??? Tests to find out if your condition is acute or chronic. This may include: ? Checking your nose for nasal polyps. ? Viewing your sinuses using a device that has a light (endoscope). ? Testing for allergies or bacteria. ? Imaging tests, such as an MRI or CT scan. In rare cases, a bone biopsy may be done to rule out more serious types of fungal sinus disease. How is this treated? Treatment for a sinus infection depends on the cause and whether your condition is chronic or acute. ??? If caused by a virus, your symptoms should go away on their own within 10 days. You may be given medicines to relieve symptoms. They include: ? Medicines that shrink swollen nasal passages (decongestants). ? A spray that eases inflammation of the nostrils (topical intranasal corticosteroids). ? Rinses that help get rid of thick mucus in your nose (nasal saline washes). ? Medicines that treat allergies (antihistamines). ? Bbrg-nze-soyqcmy pain relievers. ??? If caused by bacteria, your health care provider may recommend waiting to see if your symptoms improve. Most bacterial infections will get better without antibiotic medicine. You may be given antibiotics if you have: ? A severe infection. ? A weak immune system. ??? If caused by narrow nasal passages or nasal polyps, surgery may be needed. Follow these instructions at home: Medicines ??? Take, use, or apply shyy-pxo-pozboof and prescription medicines only as told by your health care provider. These may include nasal sprays. ??? If you were prescribed an antibiotic medicine, take it as told by your health care provider. Do not stop taking the antibiotic even if you start to feel better. Hydrate and humidify ??? Drink enough fluid to keep your urine pale yellow. Staying hydrated will help to thin your mucus. ??? Use a cool mist humidifier to keep the humidity level in your home above 50%. ??? Inhale steam for 10?15 minutes, 3?4 times a day, or as told by your health care provider. You can do this in the bathroom while a hot shower is running. ??? Limit your exposure to cool or dry air. Rest ??? Rest as much as possible. ??? Sleep with your head raised (elevated). ??? Make sure you get enough sleep each night. General instructions ??? Apply a warm, moist washcloth to your face 3?4 times a day or as told by your health care provider. This will help with discomfort. ??? Use nasal saline washes as often as told by your health care provider. ??? Wash your hands often with soap and water to reduce your exposure to germs. If soap and water are not available, use hand cso. ??? Do not smoke. Avoid being around people who are smoking (secondhand smoke). ??? Keep all follow-up visits. This is important. Contact a health care provider if: ??? You have a fever. ??? Your symptoms get worse. ??? Your symptoms do not improve within 10 days. Get help right away if: ??? You have a severe headache. ??? You have persistent vomiting. ??? You have severe pain or swelling around your face or eyes. ??? You have vision problems. ??? You develop confusion. ??? Your neck is stiff. ??? You have trouble breathing. These symptoms may be an emergency. Get help right away. Call 911. ??? Do not wait to see if the symptoms will go away. ??? Do not drive yourself to the hospital. Summary ??? A sinus infection is soreness and inflammation of your sinuses. Sinuses are hollow spaces in the bones around your face. ??? This condition is caused by nasal tissues that become inflamed or swollen. The swelling traps or blocks the flow of mucus. This allows bacteria, viruses, and fungi to grow, which leads to infection. ??? If you were prescribed an antibiotic medicine, take it as told by your health care provider. Do not stop taking the antibiotic even if you start to feel better. ??? Keep all follow-up visits. This is important. This information is not intended to replace advice given to you by your health care provider. Make sure you discuss any questions you have with your health care provider. Document Revised: 10/22/2022 Document Reviewed: 10/22/2022 Elsevier Patient Education ? 2023 [employer]. AMBULATORY VISIT SUMMARY Observed: 12/18 12:59 PM Status: F Source: [facility] Ambulatory Visit Summary GALILEA BAPTISTE :1990 Visit Date:12/18/2024 Ambulatory Visit Instructions Your Diagnosis Acute sinusitis with symptoms > 10 days Your Care Team Attending Physician - LUKAS Pandey APRN, Jodi Velasco Primary Care Physician - ROLY AVILA CNP Discharge Vitals Temperature (Tympanic) 37 ???C Heart Rate (Peripheral) 79 Blood Pressure 104/70 Height 162 cm Height 64 in Weight 80.5 kg Weight 177.472 lb BMI 30.67 Allergies Bactrim DS (Hives) penicillin (Anaphylactic reaction) Problems Ongoing - Any problem that you are currently receiving treatment for. Generalized anxiety disorder with panic attacks Patient Survey You may receive a survey via text or e-mail asking about your office visit. Please share your experience with us by completing your survey. We appreciate your feedback and thank you for choosing us for your care. AMBULATORY VISIT SUMMARY Observed: 11/30 12:47 PM Status: F Source: [facility] Ambulatory Visit Summary GALILEA BAPTISTE :1990 Visit Date:11/30/2024 Ambulatory Visit Instructions Your Diagnosis Nasal pain History of influenza Loss of smell Your Care Team Attending Physician - Ward GAYTAN, Alicia Primary Care Physician - ROLY AVILA CNP Discharge Vitals Temperature (Tympanic) 37.3 ???C Heart Rate (Peripheral) 76 Blood Pressure 102/70 Height 162 cm Height 64 in Weight 80.5 kg Weight 177.472 lb BMI 30.67 What to do next You Need to Schedule the Following Appointments Follow Up with ROLY AVILA CNP When: Where: [id number] Allergies Bactrim DS (Hives) penicillin (Anaphylactic reaction) Problems Ongoing - Any problem that you are currently receiving treatment for. Generalized anxiety disorder with panic attacks Patient Survey You may receive a survey via text or e-mail asking about your office visit. Please share your experience with us by completing your survey. We appreciate your feedback and thank you for choosing us for your care. FAMILY MEDICINE OFFICE/CLINI C NOTE Observed: 11/30/2024 12:39 PM Status: F Source: [facility] Medicine Office/Clini c Note Chief Complaint flu A positive HPI Staff Pt in office today c/o inflamed nose Pt seen in [facility] on 11/29 and tested positive for influenza A, Chest x-ray negative, pt advised to f/u with PCP in 3 days if symptoms worsen. Pt states her nose is burning and she has congestion and can't sleep. History of Present Illness I have reviewed and verified the staff HPI to be accurate for this encounter. Portions of this record have been created with voice recognition software. Occasional wrong-word or ???[id number]-p-xmeq??? substitutions may have occurred due to the inherent limitations of voice recognition software. 34-year-old female presents with complaints of nasal pain and loss of smell. Patient states she went to the ER yesterday and was diagnosed with influenza A. Patient states they did also do a chest x-ray that was negative. Her symptoms are improving with use of Tylenol for body aches. She states she has developed tenderness, nasal congestion where her nose feels like it is sticking as well as loss of smell. Review of Systems PHQ Score Initial Depression Screen Score: 0 SCORE ROS negative unless otherwise stated in HPI. Physical Exam Vitals & Measurements T: 37.3 ???C(Tympanic) HR: 76(Peripheral) BP: 102/70 SpO2: 98% HT: 64 in HT: 162 cm WT: 80.5 kg WT: 177.472 lb BMI: 30.67 General: Well developed, well nourished, in no acute distress mildly ill- appearing not toxic Eyes: Pupils equal, round, and reactive to light. Conjunctivae and sclerae normal, and extraocular movements intact Ears: No deformity or lesion of external ear. Canals and TM appear normal bilaterally. TM???s intact, not inflamed, with normal light reflex. Hearing grossly normal to conversational speech Nose: significant nasal mucosa inflammation and edema no active nasal drainage Mouth: Mucous membranes moist. Normal oropharynx, erythema of posterior pharynx without lesions or exudates. Tongue normal tonsils +1 Neck: no adenopathy Lungs: clear to auscultation throughout, no wheezing, no rales. No respiratory distress respiratory rate 16 Cardio: regular rate and rhythm, no murmur Abdomen: not assessed Musculoskeletal: not assessed Extremity: not assessed Neurologic: not assessed Skin: No rashes, ulcerations, or suspicious lesions Mental Status: Alert and oriented x3. Normal mood and affect Assessment/Plan Patient has history of influenza A diagnosed in the ER. Stated she did not get tested for COVID and is agreeable to getting tested for COVID due to loss of taste and smell. Rapid COVID was negative. Recommended she use OTC Flonase as well as AYR saline gel for her symptoms and that the nasal congestion and loss of smell should improve over the next 5 to 7 days. 1. Nasal pain (J34.89: Other specified disorders of nose and nasal sinuses) AYR nasal gel OTC along with Flonase per package instructions for nasal symptoms. 2. History of influenza (Z87.09: Personal history of other diseases of the respiratory system) Patient diagnosed with influenza a yesterday and improving. 3. Loss of smell (R43.0: Anosmia) see above. Follow-up With When Contact Information AUSTIN RUBIO ROLY [phone] Additional Instructions: Problem List/Past Medical History Ongoing Generalized anxiety disorder with panic attacks Historical No qualifying data Medications No active medications Allergies Bactrim DS (Hives) penicillin (Anaphylactic reaction) Social History Alcohol - Denies Alcohol Use, 12/29/2019 Current, 12/25/2019 Substance Abuse - Denies Substance Abuse, 12/29/2019 Current, 12/25/2019 Tobacco - Denies Tobacco Use, 12/29/2019 Never (less than 100 in lifetime) Tobacco Use:. Never Smokeless Tobacco Use:., 04/11/2024 Never (less than 100 in lifetime) Tobacco Use:., 12/25/2019 Immunizations Vaccine Date Status Comments SARS-CoV-2 mRNA (tozinameran 5y-11y) vac - Not Given Postpone due to refusal influenza virus vaccine, inactivated 02/19/2021 Recorded tetanus-diphtheria toxoids 03/29/2019 Recorded Td(adult) unspecified formulation 12/12/2003 Recorded hepatitis B pediatric vaccine 01/18/1997 Recorded haemophilus b conj (PRP-OMP) vaccine 01/18/1997 Recorded hepatitis B pediatric vaccine 06/23/1996 Recorded haemophilus b conj (PRP-OMP) vaccine 06/23/1996 Recorded hepatitis B pediatric vaccine 05/26/1996 Recorded haemophilus b conj (PRP-OMP) vaccine 05/26/1996 Recorded DTaP, unspecified formulation 05/26/1996 Recorded hepatitis B pediatric vaccine 1991 Recorded Hib, unspecified formulation 1991 Recorded poliovirus vaccine, inactivated 1991 Recorded hepatitis B pediatric vaccine 1991 Recorded Hib, unspecified formulation 1991 Recorded poliovirus vaccine, inactivated 1991 Recorded hepatitis B pediatric vaccine 1991 Recorded Hib, unspecified formulation 1991 Recorded Lab Results Ambulatory Point of Care Results Rapid Covid POC: Negative (11/30/24 12:20:00) Result Comment: Electronical ly Signed By: Alicia Truong\.br\Date and Time Signed: 11/30/24 12:40 EST ED PATIENT EDUCATION NOTE Observed: 11/02 9:23 AM Status: F Source: [facility] ED Patient Education Note Infectious Disease Influenza, Adult Influenza, also called the flu, is a viral infection that mainly affects the respiratory tract. This includes the lungs, nose, and throat. The flu spreads easily from person to person (is contagious). It causes common cold symptoms, along with high fever and body aches. What are the causes? This condition is caused by the influenza virus. You can get the virus by: ??? Breathing in droplets that are in the air from an infected person's cough or sneeze. ??? Touching something that has the virus on it (has been contaminated) and then touching your mouth, nose, or eyes. What increases the risk? The following factors may make you more likely to get the flu: ??? Not washing or sanitizing your hands often. ??? Having close contact with many people during cold and flu season. ??? Touching your mouth, eyes, or nose without first washing or sanitizing your hands. ??? Not getting an annual flu shot. You may have a higher risk for the flu, including serious problems, such as a lung infection (pneumonia), if you: ??? Are older than 65. ??? Are . ??? Have a weakened disease-fighting system (immune system). This includes people who have HIV or AIDS, are on chemotherapy, or are taking medicines that reduce (suppress) the immune system. ??? Have a long-term (chronic) illness, such as heart disease, kidney disease, diabetes, or lung disease. ??? Have a liver disorder. ??? Are severely overweight (morbidly obese). ??? Have anemia. ??? Have asthma. What are the signs or symptoms? Symptoms of this condition usually begin suddenly and last 4?14 days. These may include: ??? Fever and chills. ??? Headaches, body aches, or muscle aches. ??? Sore throat. ??? Cough. ??? Runny or stuffy (congested) nose. ??? Chest discomfort. ??? Poor appetite. ??? Weakness or fatigue. ??? Dizziness. ??? Nausea or vomiting. How is this diagnosed? This condition may be diagnosed based on: ??? Your symptoms and medical history. ??? A physical exam. ??? Swabbing your nose or throat and testing the fluid for the influenza virus. How is this treated? If the flu is diagnosed early, you can be treated with antiviral medicine that is given by mouth (orally) or through an IV. This can help reduce how severe the illness is and how long it lasts. Taking care of yourself at home can help relieve symptoms. Your health care provider may recommend: ??? Taking mwci-kan-inkacwd medicines. ??? Drinking plenty of fluids. In many cases, the flu goes away on its own. If you have severe symptoms or complications, you may be treated in a hospital. Follow these instructions at home: Activity ??? Rest as needed and get plenty of sleep. ??? Stay home from work or school as told by your health care provider. Unless you are visiting your health care provider, avoid leaving home until your fever has been gone for 24 hours without taking medicine. Eating and drinking ??? Take an oral rehydration solution (ORS). This is a drink that is sold at pharmacies and retail stores. ??? Drink enough fluid to keep your urine pale yellow. ??? Drink clear fluids in small amounts as you are able. Clear fluids include water, ice chips, fruit juice mixed with water, and low-calorie sports drinks. ??? Eat bland, kvxd-dc-abgoeg foods in small amounts as you are able. These foods include bananas, applesauce, rice, lean meats, toast, and crackers. ??? Avoid drinking fluids that contain a lot of sugar or caffeine, such as energy drinks, regular sports drinks, and soda. ??? Avoid alcohol. ??? Avoid spicy or fatty foods. General instructions ??? Take wudz-dax-cednvit and prescription medicines only as told by your health care provider. ??? Use a cool mist humidifier to add humidity to the air in your home. This can make it easier to breathe. ? When using a cool mist humidifier, clean it daily. Empty the water and replace it with clean water. ??? Cover your mouth and nose when you cough or sneeze. ??? Wash your hands with soap and water often and for at least 20 seconds, especially after you cough or sneeze. If soap and water are not available, use alcohol- based hand cso. ??? Keep all follow-up visits. This is important. How is this prevented? Get an annual flu shot. This is usually available in late summer, fall, or winter. Ask your health care provider when you should get your flu shot. ??? Avoid contact with people who are sick during cold and flu season. This is generally fall and winter. Contact a health care provider if: ??? You develop new symptoms. ??? You have: ? Chest pain. ? Diarrhea. ? A fever. ??? Your cough gets worse. ??? You produce more mucus. ??? You feel nauseous or you vomit. Get help right away if you: ??? Develop shortness of breath or have difficulty breathing. ??? Have skin or nails that turn a bluish color. ??? Have severe pain or stiffness in your neck. ??? Develop a sudden headache or sudden pain in your face or ear. ??? Cannot eat or drink without vomiting. These symptoms may represent a serious problem that is an emergency. Do not wait to see if the symptoms will go away. Get medical help right away. Call your local emergency services (911 in the [place] Do not drive yourself to the hospital. Summary ??? Influenza, also called the flu, is a viral infection that primarily affects your respiratory tract. ??? Symptoms of the flu usually begin suddenly and last 4?14 days. ??? Getting an annual flu shot is the best way to prevent getting the flu. ??? Stay home from work or school as told by your health care provider. Unless you are visiting your health care provider, avoid leaving home until your fever has been gone for 24 hours without taking medicine. ??? Keep all follow-up visits. This is important. This information is not intended to replace advice given to you by your health care provider. Make sure you discuss any questions you have with your health care provider. Document Revised: 07/06/2021 Document Reviewed: 07/06/2021 Elsevier Patient Education ? 2022 [employer]. ED PATIENT SUMMARY Observed: 11/29/2024 9:22 AM Status: F Source: [facility] ED Patient Summary [place] [id number] Patient Discharge Instructions Person Information Name: GALILEA BAPTISTE Age: 34 Years Arrival Date: 11/29/2024 07:59:39 Discharge Diagnosis: Influenza Primary Care Physician: ROLY AVILA CNP Provider Information Primary Provider: Pino Coyne DO Advanced Technology Analyst:Naseem Redmond PA-C The exam and treatment you received in the Emergency Department were for an urgent problem and are not intended as complete care. It is important that you follow up with a doctor, nurse practitioner, or physician???s retail administrative assistant for ongoing care. If your symptoms become worse or you do not improve as expected and you are unable to reach your usual health care provider, you should return to the Emergency Department. We are available 24 hours a day. GALILEA BAPTISTE has been given the following list of patient education materials, prescriptions and follow-up instructions: Follow-up Instructions: With: Address: When: ROLY AVILA In 3 days 12/02/2024 In the event that this physician does not participate in your insurance network, please consult with your insurance company to find a nearby participating provider. Patient Education Materials: Influenza, Adult A MESSAGE TO ALL PATIENTS REGARDING OPIOIDS PRESCRIPTION OPIOIDS: WHAT YOU NEED TO KNOW Prescription opioids can be used to help relieve idnsvayx-bu-diiymn pain and are often prescribed following a surgery or injury, or for certain health conditions. These medications can be an important part of the treatment but also come with serious risks. It is important to work with your healthcare provider to make sure you are getting the safest, most effective care. WHAT ARE THE RISKS AND SIDE EFFECTS OF OPIOID USE? Prescription opioids carry serious risks of addiction and overdose, especially with prolonged use. An opioid overdose, often marked by slowed breathing, can cause sudden . The use of prescription opioids can have a number of side effects as well, even when taken as directed: ??? Tolerance???meaning you might need to take more of the medication for the same pain relief ??? Physical dependence???meaning you have symptoms of withdrawal when a medication is stopped ??? Increased sensitivity to pain ??? Constipation ??? Nausea, vomiting, and dry mouth ??? Sleepiness and dizziness ??? Confusion ??? Depression ??? Low levels of testosterone that can result in lower sex drive, energy, and strength ??? Itching and sweating RISKS ARE GREATER WITH: ??? History of drug misuse, substance use disorder, or overdose ??? Mental health conditions (such as depression or anxiety) ??? Sleep apnea ??? Older age (65 years and older) ??? Avoid alcohol while taking prescription opioids. Also, unless specifically advised by your health care provider, medications to avoid include: ??? Benzodiazepines (such as Xanax or Valium) ??? Muscle relaxants (such as Soma or Flexeril) ??? Hypnotics (such as Ambien or Lunesta) ??? Other prescription opioids KNOW YOUR OPTIONS Talk to your health care provider about ways to manage your pain that don???t involve prescription opioids. Some of these options may actually work better and have fewer risks and side effects. Options may include: ??? Pain relievers such as acetaminophen, ibuprofen, and naproxen ??? Some medication that are also used for depression or seizures ??? Physical therapy and exercise ??? Cognitive behavioral therapy, a psychological, goal-directed approach, in which patients learn how to modify physical, behavioral, and emotional triggers of pain and stress. IF YOU ARE PRESCRIBED OPIOIDS FOR PAIN: ??? Never take opioids in greater amounts or more often than prescribed. ??? Follow up with your primary health care provider. o Work together to create a plan on how to manage your pain. o Talk about ways to help manage your pain that don???t involve prescription opioids. o Talk about any and all concerns and side effects. ??? Help prevent misuse and abuse o Never sell or share prescription opioids. o Never use another person???s prescription opioids. ??? Store prescription opioids in a secure place and out of reach of others (this may include visitors, children, friends, and family). ??? Safely dispose of unused prescription opioids: Find your community drug take-back program or your pharmacy mail-back program, or flush them down the toilet, following guidance from the Food and Drug Administration (www.fda.gov/Drugs/ResourcesForYou). ??? Visit www.cdc.gov/drugoverdose to learn about the risks of opioids abuse and overdose. ??? If you believe you may be struggling with addiction, tell your health director day care center and ask for guidance or call [facility]???S National Helpline at 7-127-173-HELP. v Source: US Department of Health and Human Services/Center for Disease Control & Prevention [facility] Medications Given: Medication Dose Route No medications found. Medication Information: Comment: Pharmacy Information: Patient Portal You may access all of your results and other medical record information on our secure patient portal. If you are not signed up for this yet, please contact [employer] Information Management at [phone] to get signed up today. ANNELIESE Award Nomination The ANNELIESE (Diseases Attacking the Immune SYstem) Award is an international recognition program that honors and celebrates the skillful, compassionate care nurses provide every day. Anyone who experiences or observes amazing care being provided by a nurse is encouraged to submit a nomination. To nominate your nurse, use your smart phone to scan the QR code below. You may receive a survey from Sarwat Schultz asking you to rate your care experience. Your feedback is important and will help us understand what we do well and how we can improve the quality of care we provide to you, your loved ones and our community. It???s an honor to serve you. Thank you for choosing [facility] Patient Education Materials: Influenza, Adult Influenza, also called the flu, is a viral infection that mainly affects the respiratory tract. This includes the lungs, nose, and throat. The flu spreads easily from person to person (is contagious). It causes common cold symptoms, along with high fever and body aches. What are the causes? This condition is caused by the influenza virus. You can get the virus by: ??? Breathing in droplets that are in the air from an infected person's cough or sneeze. ??? Touching something that has the virus on it (has been contaminated) and then touching your mouth, nose, or eyes. What increases the risk? The following factors may make you more likely to get the flu: ??? Not washing or sanitizing your hands often. ??? Having close contact with many people during cold and flu season. ??? Touching your mouth, eyes, or nose without first washing or sanitizing your hands. ??? Not getting an annual flu shot. You may have a higher risk for the flu, including serious problems, such as a lung infection (pneumonia), if you: ??? Are older than 65. ??? Are . ??? Have a weakened disease-fighting system (immune system). This includes people who have HIV or AIDS, are on chemotherapy, or are taking medicines that reduce (suppress) the immune system. ??? Have a long-term (chronic) illness, such as heart disease, kidney disease, diabetes, or lung disease. ??? Have a liver disorder. ??? Are severely overweight (morbidly obese). ??? Have anemia. ??? Have asthma. What are the signs or symptoms? Symptoms of this condition usually begin suddenly and last 4?14 days. These may include: ??? Fever and chills. ??? Headaches, body aches, or muscle aches. ??? Sore throat. ??? Cough. ??? Runny or stuffy (congested) nose. ??? Chest discomfort. ??? Poor appetite. ??? Weakness or fatigue. ??? Dizziness. ??? Nausea or vomiting. How is this diagnosed? This condition may be diagnosed based on: ??? Your symptoms and medical history. ??? A physical exam. ??? Swabbing your nose or throat and testing the fluid for the influenza virus. How is this treated? If the flu is diagnosed early, you can be treated with antiviral medicine that is given by mouth (orally) or through an IV. This can help reduce how severe the illness is and how long it lasts. Taking care of yourself at home can help relieve symptoms. Your health care provider may recommend: ??? Taking pfod-ulf-fgfhbdb medicines. ??? Drinking plenty of fluids. In many cases, the flu goes away on its own. If you have severe symptoms or complications, you may be treated in a hospital. Follow these instructions at home: Activity ??? Rest as needed and get plenty of sleep. ??? Stay home from work or school as told by your health care provider. Unless you are visiting your health care provider, avoid leaving home until your fever has been gone for 24 hours without taking medicine. Eating and drinking ??? Take an oral rehydration solution (ORS). This is a drink that is sold at pharmacies and retail stores. ??? Drink enough fluid to keep your urine pale yellow. ??? Drink clear fluids in small amounts as you are able. Clear fluids include water, ice chips, fruit juice mixed with water, and low-calorie sports drinks. ??? Eat bland, ieuc-sr-glccse foods in small amounts as you are able. These foods include bananas, applesauce, rice, lean meats, toast, and crackers. ??? Avoid drinking fluids that contain a lot of sugar or caffeine, such as energy drinks, regular sports drinks, and soda. ??? Avoid alcohol. ??? Avoid spicy or fatty foods. General instructions ??? Take dlvk-sxc-atjiyeq and prescription medicines only as told by your health care provider. ??? Use a cool mist humidifier to add humidity to the air in your home. This can make it easier to breathe. ? When using a cool mist humidifier, clean it daily. Empty the water and replace it with clean water. ??? Cover your mouth and nose when you cough or sneeze. ??? Wash your hands with soap and water often and for at least 20 seconds, especially after you cough or sneeze. If soap and water are not available, use alcohol- based hand cso. ??? Keep all follow-up visits. This is important. How is this prevented? Get an annual flu shot. This is usually available in late summer, fall, or winter. Ask your health care provider when you should get your flu shot. ??? Avoid contact with people who are sick during cold and flu season. This is generally fall and winter. Contact a health care provider if: ??? You develop new symptoms. ??? You have: ? Chest pain. ? Diarrhea. ? A fever. ??? Your cough gets worse. ??? You produce more mucus. ??? You feel nauseous or you vomit. Get help right away if you: ??? Develop shortness of breath or have difficulty breathing. ??? Have skin or nails that turn a bluish color. ??? Have severe pain or stiffness in your neck. ??? Develop a sudden headache or sudden pain in your face or ear. ??? Cannot eat or drink without vomiting. These symptoms may represent a serious problem that is an emergency. Do not wait to see if the symptoms will go away. Get medical help right away. Call your local emergency services (911 in the [place] Do not drive yourself to the hospital. Summary ??? Influenza, also called the flu, is a viral infection that primarily affects your respiratory tract. ??? Symptoms of the flu usually begin suddenly and last 4?14 days. ??? Getting an annual flu shot is the best way to prevent getting the flu. ??? Stay home from work or school as told by your health care provider. Unless you are visiting your health care provider, avoid leaving home until your fever has been gone for 24 hours without taking medicine. ??? Keep all follow-up visits. This is important. This information is not intended to replace advice given to you by your health care provider. Make sure you discuss any questions you have with your health care provider. Document Revised: 07/06/2021 Document Reviewed: 07/06/2021 [facility] Patient Education ? 2022 [facility] I, GALILEA BAPTISTE , have received the following patient education materials/instructions and have verbalized understanding: Patient Education Materials: Influenza, Adult Follow-up Instructions: With: Address: When: ROLY AVILA In 3 days 12/02/2024 Patient Signature Date Clinician/Nurse Signature Date 11/29/2024 09:22:58 ED CLINICAL SUMMARY Observed: 11/29/2024 9:22 AM Status: F Source: [facility] ED Clinical Summary [place] [id number] ED Clinical Summary Person Information Name: GALILEA BAPTISTE Nichole/[facility] Age: 34 Years : 1990 Sex: Female Language: Indonesian PCP: ROLY AVILA CNP Marital Status: Phone: [phone] Visit Id: Visit Reason: Ear pain; Sinus Pain/Congestion; Cough; DIZZINESS, EAR PAIN, CONGESTION Speciality: Acuity: 4 Enc Type: Emergency Med Service: Emergency Arrival: 11/29/2024 07:59:39 Discharge: 11/29/2024 09:22:50 LOS: 000 01:23 Checkin: 11/29/2024 07:59:39 Checkout: 11/29/2024 09:22:50 Dispo Type: Home (Routine DC) EVENTS: Event Name Event Status Request Date/Time Start Date/Time Complete Date/Time Arrive Complete 11/29/2024 07:59:39 11/29/2024 07:59:39 11/29/2024 07:59:39 Document Home Meds Request 11/29/2024 07:59:39 Triage Complete 11/29/2024 07:59:39 11/29/2024 08:08:32 11/29/2024 08:08:32 Bed Assign Complete 11/29/2024 08:01:07 11/29/2024 08:01:07 11/29/2024 08:01:07 Dr Exam Complete 11/29/2024 08:01:07 11/29/2024 08:01:43 11/29/2024 08:01:43 RN Exam Complete 11/29/2024 08:01:07 11/29/2024 08:15:23 11/29/2024 08:15:23 Registration Complete 11/29/2024 08:01:43 11/29/2024 08:04:55 11/29/2024 08:04:55 Dr Exam Complete 11/29/2024 08:04:13 11/29/2024 08:04:13 11/29/2024 08:04:13 Reg Complete Request 11/29/2024 08:04:55 Reg Bed Request Complete 11/29/2024 08:04:55 11/29/2024 08:04:55 11/29/2024 08:04:55 Pending Labs Complete 11/29/2024 08:09:55 11/29/2024 08:33:32 Swab Complete 11/29/2024 08:09:55 11/29/2024 08:33:32 X-Ray Complete 11/29/2024 08:09:55 11/29/2024 08:14:40 11/29/2024 08:56:24 Wet Read Request 11/29/2024 08:56:24 Discharge Complete 11/29/2024 09:13:38 11/29/2024 09:22:56 11/29/2024 09:22:56 Transfer Complete 11/29/2024 09:22:56 11/29/2024 09:22:56 11/29/2024 09:22:56 ADDRESS: [address] [place] [phone] PHYS DOC NOTES: MEDICAL INFORMATION: Prescriptions Given: PATIENT EDUCATION INFORMATION: Instructions: Influenza, Adult Follow up: With: Address: When: ROLY AVILA In 3 days 12/02/2024 DIAGNOSIS: Influenza ED NOTE-PHYSICIAN Observed: 11/29/2024 9:02 AM Status: F Source: [facility] ED Note-Physician Basic Information Time Seen: Naseem Redmond PA-C 11/29/2024 08:01 Chief Complaint cough congestion these past three days, exposed to flu. VSS, NAD. reports b/l ear pain History of Present Illness 34-year-old female comes into the ED for evaluation of flulike symptoms. Over the last few days she has had sinus congestion, ear pain, fevers. Occasional cough. No chest pain or shortness of breath. No vomiting or diarrhea. Recent influenza exposure. Review of Systems A 10 point review of systems is negative except as noted above. Medical and Surgical History: Reviewed and noted Social history: Lives at home Tobacco: Denies Physical Exam Vitals & Measurements T: 36.9 ???C(Oral) HR: 110(Peripheral) RR: 17 BP: 125/75 SpO2: 99% HT: 162 cm WT: 80.5 kg BMI: 30.67 Nurses notes and vital signs reviewed and patient is not hypoxic. General: Well-appearing, does not appear ill Skin: Warm, dry. Head: Atraumatic. Neck: No JVD. Eye: Normal conjunctiva. Ears, Nose, Mouth, and Throat: Sinus congestion, no difficulty with speaking or swallowing. TMs are clear Cardiovascular: No peripheral pulses Chest wall: Respiratory: Respirations are nonlabored. Back: Normal range of motion. Musculoskeletal: Normal ROM with no gross deformity. Gastrointestinal: Urological: Neurological: Awake and alert. No focal deficits. Follows commands. Psychiatric: Cooperative. Medical Decision Making Influenza returned positive. Chest x-ray is negative. Patient nontoxic and well-appearing on exam. Educated to supportive care discharged home PCP follow- up. Patient was encouraged to return to the ED if symptoms worsen or change. Assessment/Plan Influenza (J11.1: Influenza due to unidentified influenza virus with other respiratory manifestations) Orders: Influenza A&B Ag XR Chest 2 Views Disposition Plan Patient Discharge Condition Disposition: Discharged home Condition: Improved and stable Counseled: Patient and/or family were counseled to workup, results, treatment plan and follow-up recommendations Discharge Prescription List Prescriptions No active prescription medications Follow-up With When Contact Information ROLY AVILA In 3 days 12/02/2024 EST Additional Instructions: Patient Education Influenza, Adult Attestation I performed a substantive part of the MDM during the patient???s E/M visit. I personally made or approved the documented management plan and acknowledge its risk of complications. (Independent Interpretation) My (EKG/X-Ray/US/CT) interpretation as above. (Discussion) Management/test interpretation discussed with APC. This report was transcribed using voice recognition software. Every effort was made to ensure accuracy, however, inadvertently computerized dry cleaning counter clerk mistakes may be present. Appropriate healthcare PPE was used in evaluating this patient. Problem List/Past Medical History Ongoing Generalized anxiety disorder with panic attacks Historical No qualifying data Medications Inpatient No active inpatient medications Home No active home medications Allergies Bactrim DS (Hives) penicillin (Anaphylactic reaction) Social History Alcohol - Denies Alcohol Use, 12/29/2019 Current, 12/25/2019 Substance Abuse - Denies Substance Abuse, 12/29/2019 Current, 12/25/2019 Tobacco - Denies Tobacco Use, 12/29/2019 Never (less than 100 in lifetime) Tobacco Use:. Never Smokeless Tobacco Use:., 04/11/2024 Never (less than 100 in lifetime) Tobacco Use:., 12/25/2019 Lab Results Influenzae A Ag: Positive1 Abnormal (11/29/24 08:11:00) Influenzae B Ag: NEGATIVE1 (11/29/24 08:11:00) Result Comment: Electronical ly Signed By: Naseem Redmond PA-C\.br\Date and Time Signed: 11/29/24 10:24 EST\.br\Electronically Co-Signed By: Pino Coyne DO\.br\Date and Time Co-Signed: 11/30/24 07:54 EST XR CHEST 2 VIEWS Observed: 11/29/2024 8:46 AM Status: F Source: [facility] Exam Date/Time: 11/29/2024 08:56 EST Reason for Exam: Cough Report IMPRESSION: No acute radiographic abnormality. EXAMINATION: XR Chest 2 Views Clinical History: Cough. Comparison: None RESULT: No consolidation. No pleural effusion. No pneumothorax. Normal cardiomediastinal silhouette. No acute osseous findings. Ordering Provider: Naseem Redmond FINAL REPORT Dictated: 11/29/2024 8:58 am Ge Tse MD Signed (Electronic Signature): 11/29/2024 8:58 am Signed by: Ge Tse MD Transcribed by: GAYLA Technologist: RICKI Technical Comments Radiation Dose: Ka,r in mGy = . DAP = . INFLUENZA A&B AG Collected: 8:11 AM Status: F Source: [facility] TYPE CODE TESTS RESULT OUT OF RANGE REFERENCE UNITS LAB 56861566(LOINC ) Influenzae A Ag POSITIVE Abnormal Negative LAB 32902457(LOINC ) Influenzae B Ag NEGATIVE Normal Negative Result Comment: Test sensiti vity and specificity vary for age group, specimen type, antigen types, and prevalence of disease. Test results must be evaluated in conjunction with other clinical data available to the physician. Individuals who received nasally administered Influenza A vaccine may have positive test results up to 3 days after vaccination. Performed By: #### [id number] #### [facility] [address] [place] [address] ED PATIENT EDUCATION NOTE Observed: 03/2024 1:02 AM Status: F Source: [facility] ED Patient Education Note Infectious Disease Pharyngitis Pharyngitis is inflammation of the throat (pharynx). It is a very common cause of sore throat. Pharyngitis can be caused by a bacteria, but it is usually caused by a virus. Most cases of pharyngitis get better on their own without treatment. What are the causes? This condition may be caused by: ??? Infection by viruses (viral). Viral pharyngitis spreads easily from person to person (is contagious) through coughing, sneezing, and sharing of personal items or utensils such as cups, forks, spoons, and toothbrushes. ??? Infection by bacteria (bacterial). Bacterial pharyngitis may be spread by touching the nose or face after coming in contact with the bacteria, or through close contact, such as kissing. ??? Allergies. Allergies can cause buildup of mucus in the throat (post-nasal drip), leading to inflammation and irritation. Allergies can also cause blocked nasal passages, forcing breathing through the mouth, which dries and irritates the throat. What increases the risk? You are more likely to develop this condition if: ??? You are 5?24 years old. ??? You are exposed to crowded environments such as daycare, school, or dormitory living. ??? You live in a cold climate. ??? You have a weakened disease-fighting (immune) system. What are the signs or symptoms? Symptoms of this condition vary by the cause. Common symptoms of this condition include: ??? Sore throat. ??? Fatigue. ??? Low-grade fever. ??? Stuffy nose (nasal congestion) and cough. ??? Headache. Other symptoms may include: ??? Glands in the neck (lymph nodes) that are swollen. ??? Skin rashes. ??? Plaque-like film on the throat or tonsils. This is often a symptom of bacterial pharyngitis. ??? Vomiting. ??? Red, itchy eyes (conjunctivitis). ??? Loss of appetite. ??? Joint pain and muscle aches. ??? Enlarged tonsils. How is this diagnosed? This condition may be diagnosed based on your medical history and a physical exam. Your health care provider will ask you questions about your illness and your symptoms. A swab of your throat may be done to check for bacteria (rapid strep test). Other lab tests may also be done, depending on the suspected cause, but these are rare. How is this treated? Many times, treatment is not needed for this condition. Pharyngitis usually gets better in 3?4 days without treatment. Bacterial pharyngitis may be treated with antibiotic medicines. Follow these instructions at home: Medicines ??? Take itkm-ejv-idmxfay and prescription medicines only as told by your health care provider. ??? If you were prescribed an antibiotic medicine, take it as told by your health care provider. Do not stop taking the antibiotic even if you start to feel better. ??? Use throat sprays to soothe your throat as told by your health care provider. ??? Children can get pharyngitis. Do not give your child aspirin because of the association with Keisha's syndrome. Managing pain To help with pain, try: ??? Sipping warm liquids, such as broth, herbal tea, or warm water. ??? Eating or drinking cold or frozen liquids, such as frozen ice pops. ??? Gargling with a mixture of salt and water 3?4 times a day or as needed. To make salt water, completely dissolve ??1 tsp (3?6 g) of salt in 1 cup (237 mL) of warm water. ??? Sucking on hard candy or throat lozenges. ??? Putting a cool-mist humidifier in your bedroom at night to moisten the air. ??? Sitting in the bathroom with the door closed for 5?10 minutes while you run hot water in the shower. General instructions ??? Do not use any products that contain nicotine or tobacco. These products include cigarettes, chewing tobacco, and vaping devices, such as e-cigarettes. If you need help quitting, ask your health care provider. ??? Rest as told by your health care provider. ??? Drink enough fluid to keep your urine pale yellow. How is this prevented? To help prevent becoming infected or spreading infection: ??? Wash your hands often with soap and water for at least 20 seconds. If soap and water are not available, use hand cso. ??? Do not touch your eyes, nose, or mouth with unwashed hands, and wash hands after touching these areas. ??? Do not share cups or eating utensils. ??? Avoid close contact with people who are sick. Contact a health care provider if: ??? You have large, tender lumps in your neck. ??? You have a rash. ??? You cough up green, yellow-brown, or bloody mucus. Get help right away if: ??? Your neck becomes stiff. ??? You drool or are unable to swallow liquids. ??? You cannot drink or take medicines without vomiting. ??? You have severe pain that does not go away, even after you take medicine. ??? You have trouble breathing, and it is not caused by a stuffy nose. ??? You have new pain and swelling in your joints such as the knees, ankles, wrists, or elbows. These symptoms may represent a serious problem that is an emergency. Do not wait to see if the symptoms will go away. Get medical help right away. Call your local emergency services (911 in the [place] Do not drive yourself to the hospital. Summary ??? Pharyngitis is redness, pain, and swelling (inflammation) of the throat (pharynx). ??? While pharyngitis can be caused by a bacteria, the most common causes are viral. ??? Most cases of pharyngitis get better on their own without treatment. ??? Bacterial pharyngitis is treated with antibiotic medicines. This information is not intended to replace advice given to you by your health care provider. Make sure you discuss any questions you have with your health care provider. Document Revised: 02/13/2022 Document Reviewed: 02/13/2022 [facility] Patient Education ? 2023 [employer].Upper Respiratory Infection, Adult An upper respiratory infection (URI) is a common viral infection of the nose, throat, and upper air passages that lead to the lungs. The most common type of URI is the common cold. URIs usually get better on their own, without medical treatment. What are the causes? A URI is caused by a virus. You may catch a virus by: ??? Breathing in droplets from an infected person's cough or sneeze. ??? Touching something that has been exposed to the virus (is contaminated) and then touching your mouth, nose, or eyes. What increases the risk? You are more likely to get a URI if: ??? You are very young or very old. ??? You have close contact with others, such as at work, school, or a health care facility. ??? You smoke. ??? You have long-term (chronic) heart or lung disease. ??? You have a weakened disease-fighting system (immune system). ??? You have nasal allergies or asthma. ??? You are experiencing a lot of stress. ??? You have poor nutrition. What are the signs or symptoms? A URI usually involves some of the following symptoms: ??? Runny or stuffy (congested) nose. ??? Cough. ??? Sneezing. ??? Sore throat. ??? Headache. ??? Fatigue. ??? Fever. ??? Loss of appetite. ??? Pain in your forehead, behind your eyes, and over your cheekbones (sinus pain). ??? Muscle aches. ??? Redness or irritation of the eyes. ??? Pressure in the ears or face. How is this diagnosed? This condition may be diagnosed based on your medical history and symptoms, and a physical exam. Your health care provider may use a swab to take a mucus sample from your nose (nasal swab). This sample can be tested to determine what virus is causing the illness. How is this treated? URIs usually get better on their own within 7?10 days. Medicines cannot cure URIs, but your health care provider may recommend certain medicines to help relieve symptoms, such as: ??? Zogn-afm-mnonuas cold medicines. ??? Cough suppressants. Coughing is a type of defense against infection that helps to clear the respiratory system, so take these medicines only as recommended by your health care provider. ??? Fever-reducing medicines. Follow these instructions at home: Activity ??? Rest as needed. ??? If you have a fever, stay home from work or school until your fever is gone or until your health care provider says your URI cannot spread to other people (is no longer contagious). Your health care provider may have you wear a face mask to prevent your infection from spreading. Relieving symptoms ??? Gargle with a mixture of salt and water 3?4 times a day or as needed. To make salt water, completely dissolve ??1 tsp (3?6 g) of salt in 1 cup (237 mL) of warm water. ??? Use a cool-mist humidifier to add moisture to the air. This can help you breathe more easily. Eating and drinking ??? Drink enough fluid to keep your urine pale yellow. ??? Eat soups and other clear broths. General instructions ??? Take wjfe-sxv-wlsfzxl and prescription medicines only as told by your health care provider. These include cold medicines, fever reducers, and cough suppressants. ??? Do not use any products that contain nicotine or tobacco. These products include cigarettes, chewing tobacco, and vaping devices, such as e-cigarettes. If you need help quitting, ask your health care provider. ??? Stay away from secondhand smoke. ??? Stay up to date on all immunizations, including the yearly (annual) flu vaccine. ??? Keep all follow-up visits. This is important. How to prevent the spread of infection to others URIs can be contagious. To prevent the infection from spreading: ??? Wash your hands with soap and water for at least 20 seconds. If soap and water are not available, use hand cso. ??? Avoid touching your mouth, face, eyes, or nose. ??? Cough or sneeze into a tissue or your sleeve or elbow instead of into your hand or into the air. Contact a health care provider if: ??? You are getting worse instead of better. ??? You have a fever or chills. ??? Your mucus is brown or red. ??? You have yellow or brown discharge coming from your nose. ??? You have pain in your face, especially when you bend forward. ??? You have swollen neck glands. ??? You have pain while swallowing. ??? You have white areas in the back of your throat. Get help right away if: ??? You have shortness of breath that gets worse. ??? You have severe or persistent: ? Headache. ? Ear pain. ? Sinus pain. ? Chest pain. ??? You have chronic lung disease along with any of the following: ? Making high-pitched whistling sounds when you breathe, most often when you breathe out (wheezing). ? Prolonged cough (more than 14 days). ? Coughing up blood. ? A change in your usual mucus. ??? You have a stiff neck. ??? You have changes in your: ? Vision. ? Hearing. ? Thinking. ? Mood. These symptoms may be an emergency. Get help right away. Call 911. ??? Do not wait to see if the symptoms will go away. ??? Do not drive yourself to the hospital. Summary ??? An upper respiratory infection (URI) is a common infection of the nose, throat, and upper air passages that lead to the lungs. ??? A URI is caused by a virus. ??? URIs usually get better on their own within 7?10 days. ??? Medicines cannot cure URIs, but your health care provider may recommend certain medicines to help relieve symptoms. This information is not intended to replace advice given to you by your health care provider. Make sure you discuss any questions you have with your health care provider. Document Revised: 06/19/2022 Document Reviewed: 06/19/2022 [employer] Patient Education ? 2023 [employer]. ED PATIENT SUMMARY Observed: 11/03/2024 1:02 AM Status: F Source: [facility] ED Patient Summary [place] [id number] Patient Discharge Instructions Person Information Name: GALILEA BAPTISTE Age: 34 Years Arrival Date: 11/02/2024 23:58:12 Discharge Diagnosis: 1:Upper respiratory infection; 2:Pharyngitis Primary Care Physician: ROLY AVILA CNP Provider Information Primary Provider: Pancho Caraballo M.D. Advanced Technology Analyst:None The exam and treatment you received in the Emergency Department were for an urgent problem and are not intended as complete care. It is important that you follow up with a doctor, nurse practitioner, or physician???s retail administrative assistant for ongoing care. If your symptoms become worse or you do not improve as expected and you are unable to reach your usual health care provider, you should return to the Emergency Department. We are available 24 hours a day. GALILEA BAPTISTE has been given the following list of patient education materials, prescriptions and follow-up instructions: Follow-up Instructions: With: Address: When: ROLY AVILA In 3 days 11/06/2024 Comments: Return to the emergency room if your symptoms get worse or any new symptoms In the event that this physician does not participate in your insurance network, please consult with your insurance company to find a nearby participating provider. Patient Education Materials: Pharyngitis; Upper Respiratory Infection, Adult A MESSAGE TO ALL PATIENTS REGARDING OPIOIDS PRESCRIPTION OPIOIDS: WHAT YOU NEED TO KNOW Prescription opioids can be used to help relieve lylxxwlg-dg-hqlobi pain and are often prescribed following a surgery or injury, or for certain health conditions. These medications can be an important part of the treatment but also come with serious risks. It is important to work with your healthcare provider to make sure you are getting the safest, most effective care. WHAT ARE THE RISKS AND SIDE EFFECTS OF OPIOID USE? Prescription opioids carry serious risks of addiction and overdose, especially with prolonged use. An opioid overdose, often marked by slowed breathing, can cause sudden . The use of prescription opioids can have a number of side effects as well, even when taken as directed: ??? Tolerance???meaning you might need to take more of the medication for the same pain relief ??? Physical dependence???meaning you have symptoms of withdrawal when a medication is stopped ??? Increased sensitivity to pain ??? Constipation ??? Nausea, vomiting, and dry mouth ??? Sleepiness and dizziness ??? Confusion ??? Depression ??? Low levels of testosterone that can result in lower sex drive, energy, and strength ??? Itching and sweating RISKS ARE GREATER WITH: ??? History of drug misuse, substance use disorder, or overdose ??? Mental health conditions (such as depression or anxiety) ??? Sleep apnea ??? Older age (65 years and older) ??? Avoid alcohol while taking prescription opioids. Also, unless specifically advised by your health care provider, medications to avoid include: ??? Benzodiazepines (such as Xanax or Valium) ??? Muscle relaxants (such as Soma or Flexeril) ??? Hypnotics (such as Ambien or Lunesta) ??? Other prescription opioids KNOW YOUR OPTIONS Talk to your health care provider about ways to manage your pain that don???t involve prescription opioids. Some of these options may actually work better and have fewer risks and side effects. Options may include: ??? Pain relievers such as acetaminophen, ibuprofen, and naproxen ??? Some medication that are also used for depression or seizures ??? Physical therapy and exercise ??? Cognitive behavioral therapy, a psychological, goal-directed approach, in which patients learn how to modify physical, behavioral, and emotional triggers of pain and stress. IF YOU ARE PRESCRIBED OPIOIDS FOR PAIN: ??? Never take opioids in greater amounts or more often than prescribed. ??? Follow up with your primary health care provider. o Work together to create a plan on how to manage your pain. o Talk about ways to help manage your pain that don???t involve prescription opioids. o Talk about any and all concerns and side effects. ??? Help prevent misuse and abuse o Never sell or share prescription opioids. o Never use another person???s prescription opioids. ??? Store prescription opioids in a secure place and out of reach of others (this may include visitors, children, friends, and family). ??? Safely dispose of unused prescription opioids: Find your community drug take-back program or your pharmacy mail-back program, or flush them down the toilet, following guidance from the Food and Drug Administration (www.fda.gov/Drugs/ResourcesForYou). ??? Visit www.cdc.gov/drugoverdose to learn about the risks of opioids abuse and overdose. ??? If you believe you may be struggling with addiction, tell your health director day care center and ask for guidance or call [facility]???S National Helpline at 4-808-364-HELP. v Source: [place] Department of Health and Human Services/Center for Disease Control & Prevention [facility] Medications Given: Medication Dose Route No medications found. Medication Information: Comment: Pharmacy Information: Patient Portal You may access all of your results and other medical record information on our secure patient portal. If you are not signed up for this yet, please contact [facility] at [phone] to get signed up today. ANNELIESE Award Nomination The ANNELIESE (Diseases Attacking the Immune SYstem) Award is an international recognition program that honors and celebrates the skillful, compassionate care nurses provide every day. Anyone who experiences or observes amazing care being provided by a nurse is encouraged to submit a nomination. To nominate your nurse, use your smart phone to scan the QR code below. You may receive a survey from [employer] asking you to rate your care experience. Your feedback is important and will help us understand what we do well and how we can improve the quality of care we provide to you, your loved ones and our community. It???s an honor to serve you. Thank you for choosing [facility] Patient Education Materials: Pharyngitis Pharyngitis is inflammation of the throat (pharynx). It is a very common cause of sore throat. Pharyngitis can be caused by a bacteria, but it is usually caused by a virus. Most cases of pharyngitis get better on their own without treatment. What are the causes? This condition may be caused by: ??? Infection by viruses (viral). Viral pharyngitis spreads easily from person to person (is contagious) through coughing, sneezing, and sharing of personal items or utensils such as cups, forks, spoons, and toothbrushes. ??? Infection by bacteria (bacterial). Bacterial pharyngitis may be spread by touching the nose or face after coming in contact with the bacteria, or through close contact, such as kissing. ??? Allergies. Allergies can cause buildup of mucus in the throat (post-nasal drip), leading to inflammation and irritation. Allergies can also cause blocked nasal passages, forcing breathing through the mouth, which dries and irritates the throat. What increases the risk? You are more likely to develop this condition if: ??? You are 5?24 years old. ??? You are exposed to crowded environments such as daycare, school, or dormitory living. ??? You live in a cold climate. ??? You have a weakened disease-fighting (immune) system. What are the signs or symptoms? Symptoms of this condition vary by the cause. Common symptoms of this condition include: ??? Sore throat. ??? Fatigue. ??? Low-grade fever. ??? Stuffy nose (nasal congestion) and cough. ??? Headache. Other symptoms may include: ??? Glands in the neck (lymph nodes) that are swollen. ??? Skin rashes. ??? Plaque-like film on the throat or tonsils. This is often a symptom of bacterial pharyngitis. ??? Vomiting. ??? Red, itchy eyes (conjunctivitis). ??? Loss of appetite. ??? Joint pain and muscle aches. ??? Enlarged tonsils. How is this diagnosed? This condition may be diagnosed based on your medical history and a physical exam. Your health care provider will ask you questions about your illness and your symptoms. A swab of your throat may be done to check for bacteria (rapid strep test). Other lab tests may also be done, depending on the suspected cause, but these are rare. How is this treated? Many times, treatment is not needed for this condition. Pharyngitis usually gets better in 3?4 days without treatment. Bacterial pharyngitis may be treated with antibiotic medicines. Follow these instructions at home: Medicines ??? Take brra-bag-zxfzzyw and prescription medicines only as told by your health care provider. ??? If you were prescribed an antibiotic medicine, take it as told by your health care provider. Do not stop taking the antibiotic even if you start to feel better. ??? Use throat sprays to soothe your throat as told by your health care provider. ??? Children can get pharyngitis. Do not give your child aspirin because of the association with Keisha's syndrome. Managing pain To help with pain, try: ??? Sipping warm liquids, such as broth, herbal tea, or warm water. ??? Eating or drinking cold or frozen liquids, such as frozen ice pops. ??? Gargling with a mixture of salt and water 3?4 times a day or as needed. To make salt water, completely dissolve ??1 tsp (3?6 g) of salt in 1 cup (237 mL) of warm water. ??? Sucking on hard candy or throat lozenges. ??? Putting a cool-mist humidifier in your bedroom at night to moisten the air. ??? Sitting in the bathroom with the door closed for 5?10 minutes while you run hot water in the shower. General instructions ??? Do not use any products that contain nicotine or tobacco. These products include cigarettes, chewing tobacco, and vaping devices, such as e-cigarettes. If you need help quitting, ask your health care provider. ??? Rest as told by your health care provider. ??? Drink enough fluid to keep your urine pale yellow. How is this prevented? To help prevent becoming infected or spreading infection: ??? Wash your hands often with soap and water for at least 20 seconds. If soap and water are not available, use hand cso. ??? Do not touch your eyes, nose, or mouth with unwashed hands, and wash hands after touching these areas. ??? Do not share cups or eating utensils. ??? Avoid close contact with people who are sick. Contact a health care provider if: ??? You have large, tender lumps in your neck. ??? You have a rash. ??? You cough up green, yellow-brown, or bloody mucus. Get help right away if: ??? Your neck becomes stiff. ??? You drool or are unable to swallow liquids. ??? You cannot drink or take medicines without vomiting. ??? You have severe pain that does not go away, even after you take medicine. ??? You have trouble breathing, and it is not caused by a stuffy nose. ??? You have new pain and swelling in your joints such as the knees, ankles, wrists, or elbows. These symptoms may represent a serious problem that is an emergency. Do not wait to see if the symptoms will go away. Get medical help right away. Call your local emergency services (911 in the [place] Do not drive yourself to the hospital. Summary ??? Pharyngitis is redness, pain, and swelling (inflammation) of the throat (pharynx). ??? While pharyngitis can be caused by a bacteria, the most common causes are viral. ??? Most cases of pharyngitis get better on their own without treatment. ??? Bacterial pharyngitis is treated with antibiotic medicines. This information is not intended to replace advice given to you by your health care provider. Make sure you discuss any questions you have with your health care provider. Document Revised: 02/13/2022 Document Reviewed: 02/13/2022 [facility] Patient Education ? 2023 [facility] Upper Respiratory Infection, Adult An upper respiratory infection (URI) is a common viral infection of the nose, throat, and upper air passages that lead to the lungs. The most common type of URI is the common cold. URIs usually get better on their own, without medical treatment. What are the causes? A URI is caused by a virus. You may catch a virus by: ??? Breathing in droplets from an infected person's cough or sneeze. ??? Touching something that has been exposed to the virus (is contaminated) and then touching your mouth, nose, or eyes. What increases the risk? You are more likely to get a URI if: ??? You are very young or very old. ??? You have close contact with others, such as at work, school, or a health care facility. ??? You smoke. ??? You have long-term (chronic) heart or lung disease. ??? You have a weakened disease-fighting system (immune system). ??? You have nasal allergies or asthma. ??? You are experiencing a lot of stress. ??? You have poor nutrition. What are the signs or symptoms? A URI usually involves some of the following symptoms: ??? Runny or stuffy (congested) nose. ??? Cough. ??? Sneezing. ??? Sore throat. ??? Headache. ??? Fatigue. ??? Fever. ??? Loss of appetite. ??? Pain in your forehead, behind your eyes, and over your cheekbones (sinus pain). ??? Muscle aches. ??? Redness or irritation of the eyes. ??? Pressure in the ears or face. How is this diagnosed? This condition may be diagnosed based on your medical history and symptoms, and a physical exam. Your health care provider may use a swab to take a mucus sample from your nose (nasal swab). This sample can be tested to determine what virus is causing the illness. How is this treated? URIs usually get better on their own within 7?10 days. Medicines cannot cure URIs, but your health care provider may recommend certain medicines to help relieve symptoms, such as: ??? Yiru-jgd-xxxmfzs cold medicines. ??? Cough suppressants. Coughing is a type of defense against infection that helps to clear the respiratory system, so take these medicines only as recommended by your health care provider. ??? Fever-reducing medicines. Follow these instructions at home: Activity ??? Rest as needed. ??? If you have a fever, stay home from work or school until your fever is gone or until your health care provider says your URI cannot spread to other people (is no longer contagious). Your health care provider may have you wear a face mask to prevent your infection from spreading. Relieving symptoms ??? Gargle with a mixture of salt and water 3?4 times a day or as needed. To make salt water, completely dissolve ??1 tsp (3?6 g) of salt in 1 cup (237 mL) of warm water. ??? Use a cool-mist humidifier to add moisture to the air. This can help you breathe more easily. Eating and drinking ??? Drink enough fluid to keep your urine pale yellow. ??? Eat soups and other clear broths. General instructions ??? Take ipze-owe-fagvddg and prescription medicines only as told by your health care provider. These include cold medicines, fever reducers, and cough suppressants. ??? Do not use any products that contain nicotine or tobacco. These products include cigarettes, chewing tobacco, and vaping devices, such as e-cigarettes. If you need help quitting, ask your health care provider. ??? Stay away from secondhand smoke. ??? Stay up to date on all immunizations, including the yearly (annual) flu vaccine. ??? Keep all follow-up visits. This is important. How to prevent the spread of infection to others URIs can be contagious. To prevent the infection from spreading: ??? Wash your hands with soap and water for at least 20 seconds. If soap and water are not available, use hand cso. ??? Avoid touching your mouth, face, eyes, or nose. ??? Cough or sneeze into a tissue or your sleeve or elbow instead of into your hand or into the air. Contact a health care provider if: ??? You are getting worse instead of better. ??? You have a fever or chills. ??? Your mucus is brown or red. ??? You have yellow or brown discharge coming from your nose. ??? You have pain in your face, especially when you bend forward. ??? You have swollen neck glands. ??? You have pain while swallowing. ??? You have white areas in the back of your throat. Get help right away if: ??? You have shortness of breath that gets worse. ??? You have severe or persistent: ? Headache. ? Ear pain. ? Sinus pain. ? Chest pain. ??? You have chronic lung disease along with any of the following: ? Making high-pitched whistling sounds when you breathe, most often when you breathe out (wheezing). ? Prolonged cough (more than 14 days). ? Coughing up blood. ? A change in your usual mucus. ??? You have a stiff neck. ??? You have changes in your: ? Vision. ? Hearing. ? Thinking. ? Mood. These symptoms may be an emergency. Get help right away. Call 911. ??? Do not wait to see if the symptoms will go away. ??? Do not drive yourself to the hospital. Summary ??? An upper respiratory infection (URI) is a common infection of the nose, throat, and upper air passages that lead to the lungs. ??? A URI is caused by a virus. ??? URIs usually get better on their own within 7?10 days. ??? Medicines cannot cure URIs, but your health care provider may recommend certain medicines to help relieve symptoms. This information is not intended to replace advice given to you by your health care provider. Make sure you discuss any questions you have with your health care provider. Document Revised: 06/19/2022 Document Reviewed: 06/19/2022 [facility] Patient Education ? 2023 [facility] OLIVA Dao ELIZABETH M , have received the following patient education materials/instructions and have verbalized understanding: Patient Education Materials: Pharyngitis; Upper Respiratory Infection, Adult Follow-up Instructions: With: Address: When: ROLY AVILA In 3 days 11/06/2024 Comments: Return to the emergency room if your symptoms get worse or any new symptoms Patient Signature Date Clinician/Nurse Signature Date 11/03/2024 01:02:51 ED CLINICAL SUMMARY Observed: 11/03/2024 1:02 AM Status: F Source: [facility] ED Clinical Summary [place] [id number] ED Clinical Summary Person Information Name: OLIVA GALILEAIDALMIS Reyes/Sundeep Age: 34 Years : 1990 Sex: Female Language: Indonesian PCP: ROLY AVILA CNP Marital Status: Phone: [phone] Visit Id: Visit Reason: Throat pain - Adult; Cough; Sinus Pain/Congestion; sore throat clogged ears Speciality: Acuity: 3 Enc Type: Emergency Med Service: Emergency Arrival: 11/02/2024 23:58:12 Discharge: 11/03/2024 01:02:43 LOS: 000 01:04 Checkin: 11/02/2024 23:58:12 Checkout: 11/03/2024 01:02:43 Dispo Type: Home (Routine DC) EVENTS: Event Name Event Status Request Date/Time Start Date/Time Complete Date/Time Arrive Complete 11/02/2024 23:58:12 11/02/2024 23:58:12 11/02/2024 23:58:12 Document Home Meds Request 11/02/2024 23:58:12 Triage Complete 11/02/2024 23:58:12 11/03/2024 00:07:20 11/03/2024 00:07:20 Dr Exam Complete 11/03/2024 00:03:21 11/03/2024 00:03:21 11/03/2024 00:03:21 Registration Complete 11/03/2024 00:03:21 11/03/2024 00:04:55 11/03/2024 00:04:55 Reg Complete Request 11/03/2024 00:04:55 Reg Bed Request Complete 11/03/2024 00:04:55 11/03/2024 00:04:55 11/03/2024 00:04:55 Bed Assign Complete 11/03/2024 00:07:51 11/03/2024 00:07:51 11/03/2024 00:07:51 RN Exam Complete 11/03/2024 00:07:51 11/03/2024 00:36:37 11/03/2024 00:36:37 Pending Labs Complete 11/03/2024 00:19:15 11/03/2024 00:51:24 Lab Complete 11/03/2024 00:19:15 11/03/2024 00:51:24 Pending Labs Inlab 11/03/2024 00:41:52 11/03/2024 00:41:52 Discharge Complete 11/03/2024 00:58:54 11/03/2024 01:02:49 11/03/2024 01:02:49 Transfer Complete 11/03/2024 01:02:49 11/03/2024 01:02:49 11/03/2024 01:02:49 ADDRESS: [address] [place] [address] [phone] PHYS DOC NOTES: MEDICAL INFORMATION: Prescriptions Given: PATIENT EDUCATION INFORMATION: Instructions: Pharyngitis; Upper Respiratory Infection, Adult Follow up: With: Address: When: ROLY AVILA In 3 days 11/06/2024 Comments: Return to the emergency room if your symptoms get worse or any new symptoms DIAGNOSIS: 1:Upper respiratory infection; 2:Pharyngitis ED NOTE-PHYSICIAN Observed: 11/03/2024 12:59 AM Status: F Source: [facility] ED Note-Physician Basic Information Time Seen: Pancho Caraballo M.D. 11/03/2024 00:03 Chief Complaint Sore throat, congestion, cough and mouth pain for past 2 days. Exposed to strept throat History of Present Illness The patient is a 34-year-old female who presented to the emergency room with upper respiratory symptoms. The patient states for the past 3 days she has been having sore throat. She states the sore throat got worse last night. The patient reports some dry cough. She is complaining of chills. She states her 2 daughters have been diagnosed with strep. The patient reports some runny nose and congestion. She states her ears feel clogged. The patient denies any fever. She denies any vomiting. The patient denies any other associated symptoms. Review of Systems Additional ROS info: Except as noted in the above Review of Systems and in the History of Present Illness all other systems have been reviewed and are negative or noncontributory. Physical Exam Vitals & Measurements T: 36.5 ???C(Oral) HR: 85(Peripheral) RR: 16 BP: 110/74 SpO2: 99% HT: 162.5 cm WT: 80.5 kg BMI: 30.49 General: alert, no acute distress Skin: warm, dry, Head: no trauma, normocephalic Neck: Trachea midline, mild tenderness upper anterior of neck, supple Eye: normal conjunctiva, sclera clear, PERRL, EOMI, vision unchanged ENMT: TM's clear, oral mucosa moist, no pharyngeal erythema or exudate Cardiovascular: regular rate and rhythm, Respiratory: Lungs CTA, respirations non labored, breath sounds equal, Gastrointestinal: soft, non distended, no tenderness, no guarding, Extremities: no deformity, no trauma Neurological: Alert and oriented, speech normal, no focal neuro deficits Psychiatric: cooperative, affect appropriate for age, Medical Decision Making MEDICAL DECISION MAKING Number and Complexity of Problems Differential Diagnosis: [] [facility] Data External documents reviewed: [] My EKG interpretation: [] My CT interpretation: [] My X-ray interpretation: [] My Ultrasound interpretation: [] Decision rules/scores evaluated: [] Discussed with: [] Treatment and Disposition ED Course: The patient presented with respiratory symptoms and sore throat. More likely her symptoms are due to viral cause. She does not appear to be toxic. She is afebrile. Rapid strep and COVID are negative. Will discharge patient with symptomatic treatment. She will follow-up with primary care. She is instructed to return to the emergency room if her symptoms get worse or any new symptoms. Shared decision making: [] Code status: [] Assessment/Plan 1. Upper respiratory infection (J06.9: Acute upper respiratory infection, unspecified) 2. Pharyngitis (J02.9: Acute pharyngitis, unspecified) Orders: Group A Strep by PCR Rapid COVID Antigen ([facility]) Rapid Strep w/rfx Disposition Plan Patient Discharge Condition Stable Discharge Disposition Discharge home Discharge Prescription List Prescriptions No active prescription medications Follow-up With When Contact Information ROLY AVILA In 3 days 11/06/2024 EST Additional Instructions: Return to the emergency room if your symptoms get worse or any new symptoms Patient Education Pharyngitis Upper Respiratory Infection, Adult Problem List/Past Medical History Ongoing Generalized anxiety disorder with panic attacks Historical No qualifying data Medications Inpatient No active inpatient medications Home No active home medications Allergies Bactrim DS (Hives) penicillin (Anaphylactic reaction) Social History Alcohol - Denies Alcohol Use, 12/29/2019 Current, 12/25/2019 Substance Abuse - Denies Substance Abuse, 12/29/2019 Current, 12/25/2019 Tobacco - Denies Tobacco Use, 12/29/2019 Never (less than 100 in lifetime) Tobacco Use:. Never Smokeless Tobacco Use:., 04/11/2024 Never (less than 100 in lifetime) Tobacco Use:., 12/25/2019 Lab Results Rapid Strep: NEGATIVE1 (11/03/24 00:30:00) Rapid COVID Ag: Not Detected (11/03/24 00:30:00) Rapid COV Int NEG Ctl: Pass (11/03/24 00:30:00) Rapid COV Int POS Ctl: Pass (11/03/24 00:30:00) Diagnostic Results No qualifying data available. Result Comment: Electronical ly Signed By: Rashmi Zhong, Pancho Ceja\.br\Date and Time Signed: 11/03/24 01:49 EST RAPID STREP W/RFX Collected: 11/03/2024 12:30 AM Sta tus: F Source: [facility] TYPE CODE TESTS RESULT OUT OF RANGE REFERENCE UNITS LAB 66612-6([facility]) STREPTOCOCCUS PYOGENES AG:PRTHR:PT:THRT: ORD:IA.RAPID NEGATIVE Normal Negative Performed By: #### [id number] #### [facility] [address] [place] [address] RAPID COVID ANTIGEN ([facility]) Collected: 1 01/04/2024 12:30 AM Status: F Source: [facility] TYPE CODE TESTS RESULT OUT OF RANGE REFERENCE UNITS LAB 46608-1([facility]) SARS CORONAVIRUS+SA RS CORONAVIRUS 2 AG:PRTHR:PT:RE SPIRATORY SYSTEM SPECIMEN:ORD:I A.RAPID Not Detected Normal Not Detected Result Comment: The BD Verit or??? System for Rapid Detection of SARS-CoV-2 is a chromatographic digital immunoassay intended for the direct and qualitative detection of SARS-CoV-2 nucleocapsid antigens in nasal swabs from individuals who are suspected of COVID-19 by their healthcare provider within the first five days of the onset of symptoms. Negative results should be treated as presumptive, do not rule out SARS-CoV-2 infection and should not be used as the sole basis for treatment or patient management decisions, including infection control decisions. Negative results should be considered in the context of a patient???s recent exposures, history and the presence of clinical signs and symptoms consistent with COVID-19, and confirmed with a molecular assay, if necessary, for patient management. For in vitro diagnostic use. In the [place], only for use under an Emergency Use Authorization. In the [place], this test has not been FDA cleared or approved; this test has been authorized by FDA under an EUA for use by authorized laboratories; use by laboratories certified under the CLIA, 42 U.S.C. ???263a, that meet requirements to perform moderate, high, or waived complexity tests and at the Point of Care (POC), i.e., in patient care settings operating under a CLIA Certificate of Waiver, Certificate of Compliance, or Certificate of Accreditation. This test has been authorized only for the detection of proteins from SARS-CoV-2, not for any other viruses or pathogens; and, in the [place], this test is only authorized for the duration of the declaration that circumstances exist justifying the authorization of emergency use of in vitro diagnostics for detection and/or diagnosis of the virus that causes COVID-19 under Section 564(b)(1) of the Act, 21 U.S.C. ??? 360bbb-3(b)(1), unless the authorization is terminated or revoked sooner. LAB CD:[id number]( [facility]) Rapid COV Int POS Ctl Pass Normal LAB CD:[id number]( [facility]) Rapid COV Int NEG Ctl Pass Normal Performed By: #### [id number] #### [facility] [address] [place] [address] GRP A STRP PCR Collected: 4 12:30 AM Status: F Source: [facility] Order Comment: Order Added o n by Discern Rule. TYPE CODE TESTS RESULT OUT OF RANGE REFERENCE UNITS LAB CD:[id number]([facility]) Group A Strep NEGATIVE Normal Negative Result Comment: Testing perf ormed using DNA amplification. LAB CD:[id number]([facility]) Grp A Strp Intrl Ctrl Pass Normal Performed By: #### [id number] #### [facility] [address] [place] [address] ALLERGIES DATE TYPE / CODE NAME / CODE REACTION SEVERITY SOURCE 11/04/2024 DRUG INGREDI/4195 31704(SNOMED CT) CEPHALEXIN SWELLING [facility] 03/01/2018 DRUG/0828949 03(SNOMED CT) SULFAMETHOXAZOLE-T RIMETHOPRIM HIVES [facility] 02/15/2004 Drug Class/171084 003(SNOMED CT) PENICILLINS HIVES [facility] DR/882130110 (SNOMED CT) penicillin anaphylactic reaction [facility] DR/693441326 (SNOMED CT) Bactrim DS [id number] [facility] ENCOUNTERS ADMIT/DISCHARGE ACCOUNT NUMBER ADMITTING ENCOUNTER CLASS LOCATION SOURCE 04/22/2025/04/22/20 [id number] [facility]03[facility] [id number] Ambulatory CC KipkBuildi ng:CC KipkRoom: Exam 1 [facility] 01/31/2025/02/01/20 25 [id number] Ambulatory Building:[facility] 01/11/2025/01/11/20 25 [id number] [facility] 01/11/2025/01/11/20 25 [id number] [facility] 12/18/2024/12/18/19 25 [id number] Ambulatory CC Amaliauildi ng:CC Britoom: Exam 3 [facility] 12/06/2024/12/06/19 25 [id number] Ambulatory Building:[facility] 11/30/2024/11/30/20 24 [id number] Ambulatory CC NorwalDomoldi ng:CC NorsaravanankRoom: Exam 1 [facility] 11/29/2024/11/29/20 24 [id number] Emergency [facility] EDRoom: Ex-ABed: [facility] 11/29/2024 [id number] Emergency [facility]: EDRoom: Ex-ABed: [facility] 11/04/2024/11/04/20 24 [id number] Ambulatory Building:[facility] 11/02/[id number] Emergency [facility]Building: EDRoom: Ex-ABed: [facility] 11/02/2024/11/03/20 24 [id number] Emergency [facility]Building: EDRoom: Ex-ABed: [facility] 08/30/2024/08/30/20 24 [id number] Ambulatory Building:[facility] PAYERS ENCOUNTER GUARANTOR PAYER SUBSCRIBER SOURCE 04/22/2025 Primary Insuranc e:BLUE CARD PPO OOSPolicy Number: [id number] e Date:5767-81-21Qvxo Name:Elpidio VILLATORO: [id number] [place] [address] [facility] 02/02/2025 GALILEA VILLATORO: [facility] CIRTel: [phone]~~[phone] HP) Primary Insurance:AnthemPolicy Number: [id number] e Date:1745-16-23[id number] [place] [address]JL: GALILEA SWENSON [facility] 01/31/2025 GALILEA VILLATORO: [place] [address]Ogt: (HP) Primary Insurance:BCBSPolicy Number: [id number] e Date:2024-12-01 GALILEA VILALTORO: [id number] [place] [address] [facility] 01/11/2025 Primary Insuranc e:BLUE CARD PPO OOSPolicy Number: [id number] e Date:6283-62-43Erbw Name:Elpidio VILLATORO: [id number] [place] [address] [facility] 01/11/2025 Primary Insuranc e:BLUE CARD PPO OOSPolicy Number: [id number] e Date:7292-29-69Wmld Name:Elpidio VILLATORO: [id number] [place] [address] [facility] 12/18/2024 GALILEA VILLATORO: [facility]: [phone]~~[phone] (HP) Primary Insurance:AnthemPolicy Number: [id number] Date:[id number] [address]VK: GALILEA SWENSON [facility] 12/06/2024 GALILEA VILLATORO: [place] [address]Ciw: (HP) Primary Insurance:[facility] MEDICAIDPolicy Number: [id number] Date:2023-05-14 - 2024-10-30 GALILEA VILLATORO: [id number] [place] [address] [facility] 11/30/2024 GALILEA VILLATORO: [facility] CIRTel: [phone]~~[phone] (HP) Primary Insurance:SELF PAYPolicy Number: Effective Date:2024-11-29 GALILEA SWENSON [facility] 11/29/2024 GALILEA Contreras JAYLYNB: [facility] CIRTel: [phone]~~[phone] (HP) Primary Insurance:SELF PAYPolicy Number: Effective Date:2024-11-29 GALILEA SWENSON [facility] 11/29/2024 GALILEA Contreras JAYLYNB: [facility] CIRTel: [phone]~~[phone] (HP) Primary Insurance:SELF PAYPolicy Number: Effective Date:2024-11-29 GALILEA SWENSON [facility] 11/04/2024 GALILEA M IRVING: [place] [id number]: (HP) Primary Insurance:[employer] MEDICAIDPolicy Number: [id number] Date:2023-05-14 - 2024-10-30 GALILEA Contreras IRVING: [id number] [place] [address] [facility] 11/02/2024 GALILEA Contreras IRVING: [facility] CIRTel: [phone]~~[phone] (HP) Primary Insurance:SELF PAYPolicy Number: Effective Date:2024-11-03 GALILEA SWENSON [facility] 11/02/2024 GALILEA Contreras IRVING: [facility] CIRTel: [phone]~~[phone] (HP) Primary Insurance:SELF PAYPolicy Number: Effective Date:2024-11-03 GALILEA SWENSON [facility] 08/30/2024 GALILEA M IRVING: [place] [address]Gaf: () Primary Insurance:[employer] MEDICAIDPolicy Number: [id number] Date:2023-05-14 GALILEA VILLATORO: [id number] [address] [facility] EPIC
--- OUTSIDE RECORDS SUMMARY | 2025-04-22 15:00 | XMS_ITS | Encounter Summary ---
Author Organization [facility] Address [address] [place] [address] Care Team Providers Care Senior Game Advisor Name Role Phone Josefa Venegas APRN.OCEAN FREIGHT AGENT Primary Care Provi jose Source Comments In the event this information is protected by the Federal Confidentiality of Alcohol and Drug AbusePatient Records regulations: The Federal rules restrict any use of the information to criminally investigate or prosecute any alcohol or drug abuse patient.[facility] Reason for Visit * Reason Comments Telemedicine Encounter Details Date Type Department Care Team (Latest Contact Info) Description 04/22/2025 3:00 PM EDT [facility] Internal Medicine [place] [address] [place] [address] Josefa Venegas APRN.OCEAN FREIGHT AGENT [address] [place] [address] Throat irritation (Primary Dx); Gastro-esophageal reflux disease without esophagitis; Chronic allergic rhinitis Social History Tobacco Use Types Packs/Day Years Used Date Smoking Tobacco: Never Passive Smoke Exposure: Never Smokeless Tobacco: Never Alcohol Use Standard Drinks/Week Comments Not Currently 0 (1 standard drink = 0.6 oz pur e alcohol) last 2021. [facility] Utilities Answer Date Recorded In the past 12 months has th e electric, gas, oil, or water company threatened to shut off services in your home? No 01/09/2025 Social Connection and Isolat ion Panel [NHANES] Answer Date Recorded In a typical week, how many times do you talk on the phone with family, friends, or neighbors? More than three times a week 01/09/2025 How often do you get togethe r with friends or relatives? Once a week 01/09/2025 How often do you attend chur ch or mosque services? Never 01/09/2025 Do you belong to any clubs o r organizations such as muslim groups, unions, fraternal or athletic groups, or school groups? No 01/09/2025 How often do you attend meet ings of the clubs or organizations you belong to? Never 01/09/2025 Are you , , di vorced, , never , or living with a partner? 01/09/2025 AUDIT-C Answer Date Recorded Q1: How often do you have a drink containing alcohol? Never 01/09/2025 Q2: How many drinks containi ng alcohol do you have on a typical day when you are drinking? Patient does not drink Q3: How often do you have si x or more drinks on one occasion? Never 01/09/2025 Overall Financial Resource Strain (CARDIA) Answe r Date Recorded How hard is it for you to pa y for the very basics like food, housing, medical care, and heating? Somewhat hard 01/09/2025 PHQ-2 Answer Date Recorded PHQ-2 score 0 01/11/2025 [facility] of Occupat ional Health - Occupational Stress Questionnaire Answer Date Recorded Do you feel stress - tense, restless, nervous, or anxious, or unable to sleep at night because your mind is troubled all the time - these days? Only a little 01/09/2025 Exercise Vital Sign Answer Date Recorde d On average, how many days pe r week do you engage in moderate to strenuous exercise (like a brisk walk)? 2 days 01/09/2025 On average, how many minutes do you engage in exercise at this level? 30 min 01/09/2025 Hunger Vital Sign Answer Date Recorded Within the past 12 months, y ou worried that your food would run out before you got the money to buy more. Never true 01/09/20 25 Within the past 12 months, t he food you bought just didn't last and you didn't have money to get more. Never true 01/09/2025 PRAPARE - Transportation Answer Date Re corded In the past 12 months, has l ack of transportation kept you from medical appointments or from getting medications? No 08/2025 In the past 12 months, has l ack of transportation kept you from meetings, work, or from getting things needed for daily living? No 01/09/2025 Housing Stability Vital Sign Answer Dru e Recorded In the last 12 months, was t here a time when you were not able to pay the mortgage or rent on time? No 01/09/2025 Number of Times Moved in the Last Year Not on fi le 01/09/2025 Homeless in the Last Year Not on file 2024 Area Deprivation Index Answer Date Michael rded National Score (1-100), lower number is lower ri sk 60 01/11/2025 State Score (1-10), lower number is lower risk 4 01/11/2025 Data from: https://www.neighborhoodatlas.medicine.[facility].edu/. Last address used for calculation [address] 01/11/2025 Comments No Sex and Gender Information Value Date Recorded Sex Assigned at Not on file Legal Sex Female 11:09 AM EST Gender Identity Not on file Sexual Orientation Not on file documented as of this encounter Patient Instructions * Patient Instructions* Josefa Venegas, TWIST MAKER.OCEAN FREIGHT AGENT - 04/22/2025 3:13 PM EDT List of Common Gastrointestinal Irritants* NSAIDS: advil, motrin, ibuprofen, aleve, naproxen, aspirin, etc. Pain medications substitutions include acetaminophen and diclofenac gel (voltaren) available kmyf-vqx-enoinuw. Stimulants: coffee (including decaffeinated), tea, chocolate, weight loss products Tea drinkers can substitute non-citrus herbal and sun brewed teas. Carbonation: sodas and seltzer, energy drinks (Red bull, Monster) Alcohol including beer, wine and liquor. Nicotine: cigarettes,e-cigarettes (vaping) or chewing tobacco products. Acid foods: orange, [place] and other citrus fruit and juice; tomato and tomato juice or sauce. Fatty or deep fried foods. Spicy food / [place]: including hot sauce and hot peppers. *Most [...] foods from your diet and see if yoursymptoms improve. If the gastrointestinal symptoms are related to dietary factors, strict adherenceto a diet that eliminates the food should bring marked relief in 10-14 days. Once you are feeling better, you can begin to add foods back into your diet, one at a time. If symptoms return, you will be able to identify the irritant. - Take omeprazole (Prilosec) every day, ideally for at least 2 weeks; your refill has been sent to the pharmacy. If swallowing the pill is difficult, mix it in applesauce or talk with your pharmacistabout a dissolvable alternative. - Begin taking revl-mum-ucbpdrw loratadine (Claritin) once daily until your next visit. - Review the list of foods and drinks that can irritate your stomach; resighini those you regularly consume and bring the list (or your notes) to the follow-up. - Return for a follow-up visit next week as scheduled to assess your symptoms and adjust treatment as needed. documented in this encounter Progress Notes * Josefa Venegas APRN.CNP - 04/22/2025 3:18 PM EDT David Calero is a 35-year-old female with [...] Irritation of the stomach lining Imaging: Assessment & Plan 1. Throat irritation (J39.2) 2. Gastro-esophageal [...] Previously prescribed Flonase and Claritin; currently using ppxs-ejb-qznagmy loratadine sporadically. - No recent increase in allergy symptoms such as rhinorrhea, post-nasal drip, or congestion. - Advised to take loratadine daily until next follow-up. Recording using [employer] software for draft documentation of the visit was discussed with the patient/authorized energy conservation representative; all questions welcomed and answered. Patient/authorized energy conservation representative agreed to proceed Josefa Venegas APRN.OCEAN FREIGHT AGENT documented in this encounter Plan of Treatment Upcoming Encounters Date Type Department Care Team (Latest Contact Info) Description 04/27/2025 5:00 PM EDT Office Visit Internal Medicine [place] [address] [facility] [place] [address] Josefa Venegas APRN.OCEAN FREIGHT AGENT [address] [place] [address] burning throat - uncomfortable to swallow -for 2+months documented as of this encounter Visit Diagnoses Diagnosis Throat irritation- Primary Other diseases of pharynx, not elsewhere classified Gastro-esophageal reflux disease without esophagitis Esophageal reflux Chronic allergic rhinitis Allergic rhinitis, cause unspecified documented in this encounter Care Teams Senior Game Advisor Relationship Specialty Start Date End Date Josefa Venegas APRN.JOANNE [address] [place] [address] PCP - General Internal Medicine 04/07/25 documented as of this encounter
[2025-04-23 14:30] VITALS: BP 125/93; PULSE 67; TEMP 36.8; O2SAT 98; BMI 30.2
--- OUTSIDE RECORDS SUMMARY | 2025-04-23 14:35 | XMS_ITS | Encounter Summary ---
Author Organization [facility] Address [address] [facility] [place] [address] Care Team Providers Care Inspector Missile Name Role Phone Blaire Aragon MD Primary Care Provider [phone] Ute Mcleod MD Primary Care Provider Blaire Aragon MD Primary Care Provider + [phone] Encounter Details Date Type Department Care Team (Late st Contact Info) Description 05/05/2023 Abstract [facility] OB [address] [place] [id number] Philip Jain [address] [place], [place] [id number] Social History Tobacco Use Types Packs/Day Years Used Date Smoking Tobacco: Never Assessed Comments Unknown Sex and Gender Information Value Date Recorded Sex Assigned at Female 08/03/2024 2:44 PM EDT Legal Sex Female 7:08 PM EDT Gender Identity Female 08/03/2024 2:44 PM EDT Sexual Orientation Asexual 08/03/2024 2: 44 PM EDT documented as of this encounter Plan of Treatment Not on file documented as of this encounter Visit Diagnoses Not on filedocumented in this encounter Care Teams Inspector Missile Relationship Specialty Start Date End Date Blaire Aragon MD [address] [place], [place] [phone] PCP - General Family Medicine 04/08/23 03/14/24 Ute Mcleod MD [address] [place] [address] PCP - General Family Medicine 03/15/24 08/15/24 Blaire Aargon MD [address] [place] [address] PCP - General Family Medicine 08/16/24 documented as of this encounter
--- OUTSIDE RECORDS SUMMARY | 2025-04-23 14:35 | XMS_ITS | Encounter Summary ---
Author Organization [facility] Address [address] [facility] [place] [address] Care Team Providers Care Shoe Lacer Name Role Phone Blaire Aragon MD Primary Care Provider + [phone] Encounter Details Date Type Department Care Team (Late st Contact Info) Description 11/29/2024 [facility] [address] [place] [address] Saadia Landa NP [address] [place] [address] Social History Tobacco Use Types Packs/Day Years Used Date Smoking Tobacco: Never Alcohol Use Standard Drinks/Week Comments Never 0 (1 standard drink = 0.6 oz pur e alcohol) Caffeine intake: none B1300 Health Literacy Answer Date Recor ded How often do you need to hav e someone help you when you read instructions, pamphlets, or other written material from your doctor or pharmacy? Never 11/04/2024 Social Connection and Isolat ion Panel [NHANES] Answer Date Recorded In a typical week, how many times do you talk on the phone with family, friends, or neighbors? More than three times a week 11/04/2024 How often do you get togethe r with friends or relatives? Once a week 11/04/2024 How often do you attend chur ch or jainism services? Never 11/04/2024 Do you belong to any clubs o r organizations such as sabianist groups, unions, fraternal or athletic groups, or school groups? No 11/04/2024 How often do you attend meet ings of the clubs or organizations you belong to? Never 11/04/2024 Are you , , di vorced, , never , or living with a partner? 11/04/2024 AUDIT-C Answer Date Recorded Q1: How often do you have a drink containing alcohol? Never 11/04/2024 Q2: How many drinks containi ng alcohol do you have on a typical day when you are drinking? Patient does not drink Q3: How often do you have si x or more drinks on one occasion? Never 11/04/2024 Overall Financial Resource Strain (CARDIA) Answe r Date Recorded How hard is it for you to pa y for the very basics like food, housing, medical care, and heating? Not hard at all 11/04/2024 [facility] of Occupat ional Health - Occupational Stress Questionnaire Answer Date Recorded Do you feel stress - tense, restless, nervous, or anxious, or unable to sleep at night because your mind is troubled all the time - these days? To some extent 11/04/2024 Exercise Vital Sign Answer Date Recorde d On average, how many days pe r week do you engage in moderate to strenuous exercise (like a brisk walk)? 2 days 11/04/2024 On average, how many minutes do you engage in exercise at this level? 30 min 11/04/2024 Hunger Vital Sign Answer Date Recorded Within the past 12 months, y ou worried that your food would run out before you got the money to buy more. Never true 11/04/20 24 Within the past 12 months, t he food you bought just didn't last and you didn't have money to get more. Never true 11/04/2024 PRAPARE - Transportation Answer Date Re corded In the past 12 months, has l ack of transportation kept you from medical appointments or from getting medications? No 03/2024 In the past 12 months, has l ack of transportation kept you from meetings, work, or from getting things needed for daily living? No 11/04/2024 Housing Stability Vital Sign Answer Dru e Recorded In the last 12 months, was t here a time when you were not able to pay the mortgage or rent on time? No 11/04/2024 Number of Times Moved in the Last Year Not on fi le 11/04/2024 At any time in the past 12 m [facility], were you homeless or living in a long term (including now)? No 11/04/2024 Comments No Sex and Gender Information Value Date Recorded Sex Assigned at Female 08/03/2024 2:44 PM EDT Legal Sex Female 7:08 PM EDT Gender Identity Female 08/03/2024 2:44 PM EDT Sexual Orientation Asexual 08/03/2024 2: 44 PM EDT documented as of this encounter Plan of Treatment Not on file documented as of this encounter Procedures Procedure Name Priority Date/Time Associated Diagnosis Comments XR CHEST 2 VIEWS Routine 11/29/2024 9:53 AM EST documented in this encounter Results * XR chest 2 views (11/29/2024 9:53 AM EST) Anatomical Region Laterality Modality Chest Radiographic Edelmira ging us Saadia Forrester Case COAL GETTER IMG XR PROCEDURES Final Resu lt documented in this encounter Visit Diagnoses Not on filedocumented in this encounter Care Teams Shoe Lacer Relationship Specialty Start Date End Date Blaire Aragon MD [address] [place] [address] PCP - General Family Medicine 08/16/24 documented as of this encounter
--- OUTSIDE RECORDS SUMMARY | 2025-04-23 14:35 | XMS_ITS | Encounter Summary ---
Author Organization [facility] Address [address] [facility] [place] [address] Care Team Providers Care Automatic Outsole Cutter Name Role Phone Blaire Aragon MD Primary Care Provider + [phone] Ute Mcleod MD Primary Care Provider + [phone] Blaire Aragon MD Primary Care Provider + [phone] Encounter Details Date Type Department Care Team ([facility] st Contact Info) Description 07/28/2023 Abstract [facility] OB [address] [place] [address] Razia London LPN [address] [place] [address] Social History Tobacco Use Types Packs/Day Years Used Date Smoking Tobacco: Never Alcohol Use Standard Drinks/Week Comments Never 0 (1 standard drink = 0.6 oz pur e alcohol) Caffeine intake: none Comments Yes Sex and Gender Information Value Date Recorded Sex Assigned at Female 08/03/2024 2:44 PM EDT Legal Sex Female 7:08 PM EDT Gender Identity Female 08/03/2024 2:44 PM EDT Sexual Orientation Asexual 08/03/2024 2: 44 PM EDT documented as of this encounter Plan of Treatment Not on file documented as of this encounter Visit Diagnoses Not on filedocumented in this encounter Care Teams Automatic Outsole Cutter Relationship Specialty Start Date End Date Blaire Aragon MD [address] [place] [address] PCP - General Family Medicine 04/08/23 03/14/24 Ute Mcleod MD [address] [place] [address] PCP - General Family Medicine 03/15/24 08/15/24 Blaire Aragon MD [address] [place] [address] PCP - General Family Medicine 08/16/24 documented as of this encounter
--- OUTSIDE RECORDS SUMMARY | 2025-04-23 14:35 | XMS_ITS | Encounter Summary ---
Author Organization [facility] Address [address] [place] [address] Care Team Providers Care Director Of Rehabilitation And Wellness Name Role Phone Blaire Aragon MD Primary Care Provider + [phone] Encounter Details Date Type Department Care Team (Late st Contact Info) Description 12/02/2024 Abstract [facility] [address] [place] [phone] Blaire Aragon MD [address] [place] [address] Social History Tobacco Use Types Packs/Day Years [...] often do you attend chur ch or uatsdin services? Never 11/04/2024 Do you belong to any clubs o r organizations such as adventism groups, unions, fraternal or athletic groups, or [...] and heating? Not hard at all 11/04/2024 [facility] of Occupat ional Health - Occupational Stress [...] any time in the past 12 m [facility], were you homeless or living in a [place] health care facility (including now)? No 11/04/2024 Comments No Sex [...] on filedocumented in this encounter Care Teams Director Of Rehabilitation And Wellness Relationship Specialty Start Date End Date Blaire Aragon MD [address] [place] [phone] PCP - General Family Medicine 08/16/24 documented as of this encounter
--- OUTSIDE RECORDS SUMMARY | 2025-04-23 14:35 | XMS_ITS | Encounter Summary ---
Author Organization [facility] Address [address] [facility] [place] [address] Care Team Providers Care Cadd Manager Name Role Phone Blaire Aragon MD Primary Care Provider + [phone] Ute Mcleod MD Primary Care Provider + [phone] Blaire Aragon MD Primary Care Provider + [phone] Encounter Details Date Type Department Care Team ([facility] Contact Info) Description 05/17/2023 Abstract [facility] BCP OB [address] [place] [id number] Hannah Herrmann PA [address] [facility] [address] [place], [place] [id number] Social History Tobacco Use Types Packs/Day Years Used Date Smoking Tobacco: Never Tobacco Cessation:Counseling Given: Not Answered Alcohol Use Standard Drinks/Week Comments Never 0 [...] on filedocumented in this encounter Care Teams Cadd Manager Relationship Specialty Start Date End Date Blaire Aragon MD [address] [place] [address] PCP - General Family Medicine 04/08/23 03/14/24 Ute Mcleod MD [address] [place] [address] PCP - General Family Medicine 03/15/24 08/15/24 Blaire Aragon MD [address] [place] [address] PCP - General Family Medicine 08/16/24 documented as of this encounter
--- OUTSIDE RECORDS SUMMARY | 2025-04-23 14:35 | XMS_ITS | Encounter Summary ---
Author Organization [facility] Address [address] [facility] [place] [address] Care Team Providers Care Utility Person Name Role Phone Blaire Aragon MD Primary Care Provider + [phone] Encounter Details Date Type Department Care Team (Late st Contact Info) Description 11/09/2024 Orders Only [facility] [address] [place] [address] María Torre MD, IBCLC [address] [place] [address] Social History Tobacco Use Types [...] often do you attend chur ch or protestant services? Never 11/04/2024 Do you belong to any clubs o r organizations such as cheondoism groups, unions, fraternal or athletic groups, or [...] and heating? Not hard at all 11/04/2024 [facility] of Occupat ional Health - Occupational Stress [...] any time in the past 12 m [facility], were you homeless or living in a care home (including now)? No 11/04/2024 Comments No Sex [...] Procedure Name Priority Date/Time Associated Diagnosis Comments STREP GROUP A, RAPID Routine 11/03/2024 1:07 PM EST RAPID STREP Routine 11/03/2024 1:07 PM EST RAPID COVID 19 ANTIGEN Routine 11/03/2024 1:07 PM EST documented in this encounter Results * RAPID STREP (11/03/2024 1:07 PM EST) us María Torre MD, IBCLC POINT OF CARE TEST E NTER/EDIT ORDERABLES Final Result * RAPID COVID 19 ANTIGEN (11/03/2024 1:07 PM EST) us María Torre MD, IBCLC POINT OF CARE TEST E NTER/EDIT ORDERABLES Final Result * STREP GROUP A, RAPID (11/03/2024 1:07 PM EST) us María Torre MD, IBCLC LAB BLOOD ORDERABLES Final Result documented in this encounter Visit Diagnoses Not on filedocumented in this encounter Care Teams Utility Person Relationship Specialty Start Date End Date Blaire Aragon MD [address] [place] [address] PCP - General Family Medicine 08/16/24 documented as of this encounter
--- OUTSIDE RECORDS SUMMARY | 2025-04-23 14:35 | XMS_ITS | Encounter Summary ---
Author Organization [facility] Address [address] [place] [address] Care Team Providers Care Student Driving Instructor Name Role Phone Blaire Aragon MD Primary Care Provider + [phone] Encounter Details Date Type Department Care Team (Late st Contact Info) Description 11/30/2024 Orders Only [facility] [address] [place] [address] María Torre MD, IBCLC [address] [place] [address] Social History Tobacco Use Types [...] often do you attend chur ch or latter day services? Never 11/04/2024 Do you belong to any clubs o r organizations such as anabaptism groups, unions, fraternal or athletic groups, or [...] and heating? Not hard at all 11/04/2024 [facility] [place] of Occupat ional Health - Occupational Stress [...] any time in the past 12 m [facility], were you homeless or living in a intermediate (including now)? No 11/04/2024 Comments No Sex [...] Procedure Name Priority Date/Time Associated Diagnosis Comments INFLUENZA A AND B ANTIBODIES Routine 11/29/2024 9:56 AM EST documented in this encounter Results * Influenza A and B antibodies (11/29/2024 9:56 AM EST) Blood Venous blood specimen / Unknown María Torre MD, IBCLC LAB MICROBIOLOGY - G ENERAL ORDERABLES Final Result documented in this encounter Visit Diagnoses Not on filedocumented in this encounter Care Teams Student Driving Instructor Relationship Specialty Start Date End Date Blaire Aragon MD [address] [place] [phone] PCP - General Family Medicine 08/16/24 documented as of this encounter
--- OUTSIDE RECORDS SUMMARY | 2025-04-23 14:36 | XMS_ITS | Clinical Summary ---
Author Organization [facility] Address [address] [place] [address] Care Team Providers Care Sausage Stringer Name Role Phone Josefa Venegas APRN.AIRCRAFT POWER PLANT ASSEMBLER Primary Care Provi jose Allergies Active Allergy Reactions Criticality Noted Date Comments Cephalexin Swelling 11/04/2024 Face tingling, tongue swelling Penicillins Hives,Swelling 02/15/2004 As a child, with hives and swelling Sulfamethoxazole-Trimetho prim Hives 03/01/2018 Mouth tingling, and face swelling Medications albuterol HFA (PROVENTIL HFA, VENTOLIN HFA) 90 mcg/actuation inhaler INHALE 1 PUFF BY MOUTH EVERY 4 HOURS NEEDED Active calcium carbonate (TUMS ORAL) Take by mouth. Active ibuprofen (MOTRIN ORAL) Take by mouth. Active fluticasone (FLONASE) 50 mcg/actuation nasal sprayIndication s:Non-seasonal allergic rhinitis, unspecified trigger Use 1 [place] in each nostril daily at bedtime. 15.8 mL 5 5 Active loratadine (CLARITIN) 10 mg tabletIndicatio ns:Non-seasonal allergic rhinitis, unspecified trigger Take 1 tablet by mouth once daily. 90 tablet 1 5 Active omeprazole (PRILOSEC) 20 mg capsuleIndicati ons:Throat irritation Take 1 capsule by mouth once daily. 30 capsule 5 Active omeprazole (PRILOSEC) 20 mg capsule Take 1 capsule by mouth once daily. 30 capsule 5 025 Discontinued Active Problems Problem Noted Date Diagnosed Date Chronic tension-type headache, not intractable 0 01/11/2025 Mild intermittent asthma 01/11/2025 Gastroesophageal reflux disease 01/11/2025 Generalized anxiety disorder 07/17/2023 Pain in pelvis 07/17/2023 Dysphagia 06/01/2007 Helicobacter pylori infection 02/23/2004 Encounters Date Type Department Care Team Description 04/22/2025 3:00 PM EDT [facility] Internal Medicine [address] [place] [address] Josefa Venegas, EXERCISE SCIENTIST.AIRCRAFT POWER PLANT ASSEMBLER Throat irritation (Primary Dx); Gastro-esophageal reflux disease without esophagitis; Chronic allergic rhinitis 04/22/2025 Travel 03/01/2025 Get Medical Advice Internal Medicine [address] [place] [address] Josefa Venegas, EXERCISE SCIENTIST.AIRCRAFT POWER PLANT ASSEMBLER UTI from Last 3 Months Immunizations Immunization Administration Dates Next Due Haemophilus influenzae b (Hi b PRP-OMP) vaccine, 3-dose series (PEDVAX HIB) 01/18/1997,06/23/1996,05/26/1996 diphtheria tetanus pertussis (DTaP) vaccine, unspecified formulation 05/26/1996 hepatitis B (HepB) vaccine, 3-dose series, age 0 yr - 19 yr (ENGERIX B-PEDS, RECOMBIVAX HB-PEDS) 01/18/1997,06/23/1996,05/26/1996,1990,1991,1991 influenza vaccine, unspecifi ed formulation 02/19/2021 poliovirus vaccine, unspecif ied formulation 1991,1991 tetanus diphtheria (Td) vacc ine, adult, unspecified formulation 12/12/2003 tetanus diphtheria (Td) vacc ine, age 7+ yr, 2 Lf tetanus (TDVAX) 03/29/2019 Social History Tobacco Use Types Packs/Day Years Used Date Smoking Tobacco: Never Passive Smoke Exposure: Never Smokeless Tobacco: Never Tobacco Cessation:Counseling Given: Not Answered Alcohol Use Standard Drinks/Week Comments Not Currently 0 (1 standard drink = 0.6 oz pur e alcohol) last 2021. [facility] Utilities Answer Date Recorded In the past 12 months has e electric, gas, oil, or water company [...] often do you attend chur ch or buddhist services? Never 01/09/2025 Do you belong to any clubs o r organizations such as temple groups, unions, fraternal or athletic groups, or [...] Answer Date Recorded PHQ-2 score 0 01/11/2025 [facility] ional [facility] - Occupational Stress Questionnaire Answer Date Recorded [...] is lower risk 4 01/11/2025 Data from: https://www.neighborhoodatlas.medicine.[facility].edu/. Last address used for calculation [address] 01/11/2025 Comments No Sex and Gender Information Value Date Recorded Sex Assigned at Not on file Legal Sex Female 11:09 AM EST Gender Identity Not on file Sexual Orientation Not on file Last Filed Vital Signs Vital Sign Reading Time Taken Comments Blood Pressure 114/78 01/11/2025 9:19 AM EST Pulse 74 01/11/2025 9:19 AM EST Temperature 36.5 C (97.7 F) 01/11/2025 9:19 AM EST Respiratory Rate - - Oxygen Saturation 99% 01/11/2025 9:19 AM EST Inhaled Oxygen Concentration - - Weight 79.5 kg (175 lb 2.5 oz) 01/11/2025 9:19 A M EST Height 165.1 cm (5' 5 ) 01/11/2025 9:19 AM EST Body Mass Index 29.15 01/11/2025 9:19 AM EST Plan of Treatment Upcoming Encounters Date Type Department Care Team (Latest Contact Info) Description 04/27/2025 5:00 PM EDT Office Visit Internal Medicine [address] [place] [address] Josefa Venegas APRN.AIRCRA[employer] POWER PLANT ASSEMBLER [address] [facility] [place] [phone] burning throat - uncomfortable to swallow -for 2+months Health Maintenance Due Date Last Done Comments HIV Screening 2009 Hepatitis C Screening 2009 Cervical Cancer Screening 02/11/2012 DTaP,Tdap,Td Vaccine (3 - Tdap) 03/30/2019 03/29/2019, 12/12/2003, 05/26/1996 Influenza Vaccine (Season Ended) 2025 02/19/2021 Covid-19 Vaccine ( season) 2026 Postponed from 08/01/2024 (Declined at this time) Depression Screening 01/11/2026 01/11/2025, 01/11/20 Annual PCP Team Chronic Disease Visit 04/22/2026 04/22/2025 Hepatitis B Vaccine Completed 01/18/1997, 06/23/1996, 05/26/1996, Additional history exists Insurance [facility] P[facility] OOS Care Teams Sausage Stringer Relationship Specialty Start Date End Date Josefa Venegas, EXERCISE SCIENTIST.AIRCRAFT POWER PLANT ASSEMBLER [address] [facility] [place] [phone] PCP - General Internal Medicine 04/07/25
--- OUTSIDE RECORDS SUMMARY | 2025-04-23 14:36 | XMS_ITS | Encounter Summary ---
Author Organization [facility] Address [address] [place] [address] Care Team Providers Care Drilling Engineer Name Role Phone Josefa Venegas APRN.[facility] Primary Care Provi [facility] Source Comments In the event this information is protected by the Federal Confidentiality of Alcohol and Drug AbusePatient Records regulations: The Federal rules restrict any use of the information to criminally investigate or prosecute any alcohol or drug abuse patient.[facility] Encounter Details Date Type Department Care Team (Latest Contact Info) Description 04/22/2025 Travel Social History Tobacco Use Types Packs/Day Years Used Date Smoking Tobacco: Never Passive Smoke Exposure: Never Smokeless Tobacco: Never Alcohol Use Standard Drinks/Week Comments Not Currently 0 (1 standard drink = 0.6 oz pur e alcohol) last 2021. [facility] Utilities Answer Date Recorded In the past 12 months has [employer] electric, gas, oil, or water company threatened [...] often do you attend chur ch or synagogue services? Never 01/09/2025 Do you belong to any clubs o r organizations such as hindu groups, unions, fraternal or athletic groups, or [...] Answer Date Recorded PHQ-2 score 0 01/11/2025 [facility] - Occupational Stress Questionnaire Answer Date Recorded [...] is lower risk 4 01/11/2025 Data from: https://www.neighborhoodatlas.medicine.[facility].edu/. Last address used for calculation [address] [facility] [address] 01/11/2025 Comments No Sex and Gender Information Value Date Recorded Sex Assigned at Not on file Legal Sex Female 11:09 AM EST Gender Identity Not on file Sexual Orientation Not on file documented as of this encounter Plan of Treatment Upcoming Encounters Date Type Department Care Team (Latest Contact Info) Description 04/27/2025 5:00 PM EDT Office Visit Internal Medicine [address] [place] [address] Josefa Venegas, ACETYLENE CYLINDER PACKING MIXER.SUPERVISOR [employer] [address] [facility] [place] [address] burning throat - uncomfortable to swallow -for 2+months documented as of this encounter Visit Diagnoses Not on filedocumented in this encounter Care Teams Drilling Engineer Relationship Specialty Start Date End Date Josefa Venegas, ACETYLENE CYLINDER PACKING MIXER.SUPERVISOR [employer] [address] [facility] [place], [place] [phone] PCP - General Internal Medicine 04/07/25 documented as of this encounter
--- OUTSIDE RECORDS SUMMARY | 2025-04-23 14:36 | XMS_ITS | Clinical Summary ---
Author Organization [facility] Address [address] [place] [address] Care Team Providers Care Tram Operator Name Role Phone Ute Mcleod MD Primary Care Provider [phone] Allergies Active Allergy Reactions Criticality Noted Date Comments Sulfamethoxazole-Trimethoprim Hives 2017 And tongue swelling Penicillins Hives 06/18/2013 Medications Vit-Fe Fumarate-FA ( PLUS) 27-1 MG TABS Take 1 tablet by mouth daily. 30 tablet 12 3 Active ranitidine (ZANTAC 150 MAXIMUM STRENGTH) 150 MG tablet Take 150 mg by mouth as needed for Heartburn Active metFORMIN (GLUCOPHAGE) 500 MG tablet 3 9 Active albuterol sulfate HFA 108 (90 Base) MCG/ACT inhaler Inhale 2 puffs into the lungs Active gabapentin (NEURONTIN) 100 MG capsuleIndicati ons:Neuropathy, Right leg pain Take 1 capsule by mouth daily for 30 days. Intended supply: 90 days 30 capsule 9 Active Active Problems Problem Noted Date Diagnosed Date Dysphagia 06/01/2007 Immunizations Immunization Administration Dates Next Due DTP 12/12/2003, 6,1991,1990,1991 Hepatitis B (Recombivax HB) 1991, 1,1991 Hib, unspecified 01/18/1997,06/23/1996, 6 Poliovirus, IPOL, (age 6w+), SC/IM, 0.5mL 05/26/1996,1991,1991 Social History Tobacco Use Types Packs/Day Years Used Date Smoking Tobacco: Never Smokeless Tobacco: Never Alcohol Use Standard Drinks/Week Comments No 0 (1 standard drink = 0.6 oz pur e alcohol) AUDIT-C Answer Date Recorded Q1: How often do you have a drink containing alcohol? Never 03/14/2024 Q2: How many drinks containi ng alcohol do you have on a typical day when you are drinking? Patient does not drink Q3: How often do you have si x or more drinks on one occasion? Never 03/14/2024 PHQ-2 Answer Date Recorded PHQ-2 Score 0 07/01/2019 Comments No Sex and Gender Information Value Date Recorded Sex Assigned at Not on file Legal Sex Female 11:20 PM EST Gender Identity Not on file Sexual Orientation Not on file Last Filed Vital Signs Vital Sign Reading Time Taken Comments Blood Pressure 119/75 03/14/2024 7:43 AM EDT Pulse 80 03/14/2024 7:43 AM EDT Temperature 36.4 C (97.5 F) 03/14/2024 7:43 AM EDT Respiratory Rate 17 03/14/2024 7:43 AM EDT Oxygen Saturation 94% 03/14/2024 7:43 AM EDT Inhaled Oxygen Concentration - - Weight 81.6 kg (180 lb) 03/14/2024 7:43 AM EDT Height 162.6 cm (5' 4 ) 03/14/2024 7:43 AM EDT Body Mass Index 30.9 03/14/2024 7:43 AM EDT Plan of Treatment Health Maintenance Due Date Last Done Comments Depression Screen 2003 Varicella vaccine (1 of 2 - 13+ 2-dose series) 02/11/2004 HIV screen 2006 Hepatitis C screen 2009 Pap smear 02/11/2012 Cervical cancer screen 2021 HPV (without or with Pap) 2021 COVID-19 Vaccine ( season) 2024 Flu vaccine (Season Ended) 2025 DTaP/Tdap/Td vaccine (7 - Td or Tdap) 09/28/2033 09/28/2023, 12/12/2003, 05/26/1996, Additional history exists Hepatitis B vaccine Completed 1991, 1991, 1991 Polio vaccine Completed 05/26/1996, 06/01, 1991 Hib vaccine Aged Out 01/18/1997, 06/01, 05/26/1996 No longer eligible based on patient's age to complete this topic HPV vaccine Aged Out No longer eligi ble based on patient's age to complete this topic Hepatitis A vaccine Aged Out No longe r eligible based on patient's age to complete this topic Meningococcal (ACWY) vaccine Aged Out No longer eligible based on patient's age to complete this topic Meningococcal B vaccine Aged Out No l onger eligible based on patient's age to complete this topic Pneumococcal 0-49 years Vaccine Aged Out No longer eligible based on patient's age to complete this topic Insurance Care Teams Tram Operator Relationship Specialty Start Date End Date Ute Mcleod MD [address] [place], [place] [phone] PCP - General Family Medicine 04/12/19
--- OUTSIDE RECORDS SUMMARY | 2025-04-23 14:36 | XMS_ITS | Clinical Summary ---
Author Organization [facility] Address [address] [place] [address] Phone Care Team Providers Care Industrial Service Technician Name Role Phone Unavailable Primary Care Provider Unavailabl e Social History Tobacco Use Types Packs/Day Years Used Date Smoking Tobacco: Never Assessed Comments Unknown Sex and Gender Information Value Date Recorded Sex Assigned at Not on file Legal Sex Female 11:39 AM EST Gender Identity Not on file Sexual Orientation Not on file Plan of Treatment Not on file
--- NOTE | 2025-04-23 14:55 | ED.GENADUL1 ---
HPI HPI - General Adult General Chief complaint: Ear Stated complaint: HEARING ISSUE Time Seen by Provider: 04/23/25 14:43 Mode of arrival: walk-in History of Present Illness HPI narrative: 35-year-old female presents for right ear pain. It started about an hour ago and she had recently been swimming. No drainage or trauma to the ear. No sore throat or left ear pain. It is moderate. Related Data Previous Rx's ?Medication ?Instructions ?Recorded loratadine 5 mg-pseudoephedrine ER 1 tab PO BID #14 tabs 04/23/25 120 mg tablet,extended release,12hr (Claritin-D 12 Hour) Allergies Allergy/AdvReac Type Severity Reaction Status Date / Time Penicillins Allergy Intermediate Hives Verified 09/26/23 06:15 Sulfa (Sulfonamide Allergy Intermediate Hives Verified 09/26/23 06:15 Antibiotics) Opioid HPI Opioid Management Most Recent Opioid Data: Last Pain Scale 2 09/28/23, 09:21 Ur Phencyclidine Scrn, (NEGATIVE) Negative 09/26/23, 06:00 Review of Systems ROS Narrative A ten point review of systems is negative except as noted above. [facility] Medical History (Updated 04/23/25 @ 14:48 by Douglas Hardy MD) Heart murmur ?R01.1 - Cardiac murmur, unspecified (ICD-10) Asthma ?J45.909 - Unspecified asthma, uncomplicated (ICD-10) Anxiety ?F41.9 - Anxiety disorder, unspecified (ICD-10) delivery delivered ?O82 - Encounter for delivery without indication (ICD-10) Surgical History (Updated 09/26/23 @ 06:17 by Kj Rajan) History of removal of ovarian cyst ?Z98.890 - Other specified postprocedural states (ICD-10) ?Z87.42 - Personal history of other diseases of the female genital tract (ICD-10) Family History (Updated 09/26/23 @ 06:18 by Kj Rajan) Other Atrial fibrillation Family history of cancer Social History Little interest or pleasure in doing things: not at all Feeling down, depressed, or hopeless: not at all Gender Identity: female Exam Narrative Exam Narrative: Nurses note and vital signs reviewed and patient is not hypoxic. General: The patient appears well and in no apparent distress. Patient is resting comfortably on cart. Skin: Warm, dry, no pallor noted. There is no rash noted. Head: Normocephalic, atraumatic Eye: Normal conjunctiva, no drainage Ears, Nose, Mouth, and Throat: oral mucosa is moist. Nares patent. Left TM and external canal are normal. The right TM is normal. The right external canal may have some mild swelling. There is no cerumen and no foreign body. Cardiovascular: Regular Rate and Rhythm Respiratory: Patient is in no distress, no accessory muscle use, lungs are clear to auscultation, no wheezing, rales or rhonchi Back: non-tender GI: Soft and nontender Musculoskeletal: The patient has no evidence of calf tenderness, no pitting edema, symmetrical pulses noted bilaterally Neurological: A&O, normal speech Psychiatric: Cooperative Constitutional Vital Signs, click to edit/add: Last Vital Signs Temp 98.2 F 04/23/25 14:30 Pulse 88 04/23/25 14:58 Resp 18 04/23/25 14:58 BP 126/88 04/23/25 14:58 Pulse Ox 98 04/23/25 14:58 O2 Del Method Room Air 04/23/25 14:30 Course Vital Signs Vital signs: Vital Signs Temperature 98.2 F 04/23/25 14:30 Pulse Rate 67 04/23/25 14:30 Respiratory Rate 18 04/23/25 14:30 Blood Pressure 125/93 H 04/23/25 14:30 Pulse Oximetry 98 04/23/25 14:30 Oxygen Delivery Method Room Air 04/23/25 14:30 Temperature 98.2 F 04/23/25 14:30 Pulse Rate 88 04/23/25 14:58 Respiratory Rate 18 04/23/25 14:58 Blood Pressure 126/88 04/23/25 14:58 Pulse Oximetry 98 04/23/25 14:58 Oxygen Delivery Method Room Air 04/23/25 14:30 Medical Decision Making [facility] Narrative Medical decision making narrative: She may have an early otitis externa so she is prescribed Cortisporin, handwritten prescription given. She was also prescribed Claritin-D. Treatment diagnosis and follow-up were discussed with the patient. Differential Diagnosis Differential Diagnosis: Cerumen impaction, otitis media, otitis externa Discharge Plan Discharge Chief Complaint: Ear Clinical Impression: Otalgia Patient Disposition: Home, Self-Care Time of Disposition Decision: 14:48 Condition: Good Mode of Transportation: Private Vehicle Prescriptions / Home Meds: New Claritin-D 12 Hour 5-120 mg tablet extended release 12 hr 1 tab PO BID Qty: 14 0RF Print Language: Occitan Instructions: Earache (ED) Referrals: Physician,Non-Staff, MD [Primary Care Provider] - 1 week Discharge Date/Time: 04/23/25 14:59
[2025-04-23 14:58] VITALS: BP 126/88; PULSE 88; O2SAT 98
== END 2025-04-23 14:59 | disposition home or self-care (01) ==
PROVIDERS: Emergency Provider Emergency Medicine
DX: H92.01 Otalgia, right ear (principal); H60.91 Unspecified otitis externa, right ear
CPT/HCPCS: 99283